=== PATIENT | male | born 1960 | race Caucasian/White ===

== ENCOUNTER 2020-09-14 14:57 | Outpatient (REF) | payer BC, SELFPAY ==
--- NOTE | 2020-09-14 15:14 | XR_ITS ---
EXAMINATION: XR CHEST CLINICAL INFORMATION: Cough COMPARISON: June 15, 2019 TECHNIQUE: 2 views of the chest were obtained. FINDINGS: No significant abnormality is noted involving the heart, lungs, mediastinum, bony thorax or soft tissues. Bilateral nipple shadows evident. XR/XR chest 2V IMPRESSION: No acute disease.
== END 2020-09-14 14:58 | disposition home or self-care (01) ==
LOC: HO.LAB 14:57
PROVIDERS: PCP Internal Medicine; Visit Provider Nurse Practitioner Family
DX: R05 Cough (principal)
CPT/HCPCS: 36415; 71046; U0003

== ENCOUNTER 2020-11-18 14:00 | Outpatient (RCR) | payer BC, SELFPAY | END 2021-01-05 15:02 | disposition home or self-care (01) | LOC: HO.PTCHIC 14:00 | PROVIDERS: PCP Internal Medicine; Visit Provider Internal Medicine | DX: M54.5 Low back pain (principal); M25.562 Pain in left knee | CPT/HCPCS: 97014; 97110; 97140; 97162 ==

== ENCOUNTER 2020-12-01 15:15 | Outpatient (REF) | payer BC, SELFPAY ==
--- NOTE | ~2020-12-01 | XR_ITS ---
EXAMINATION: XR knee RT 4V, XR knee LT 4V CLINICAL INFORMATION: Reason for Exam PAIN COMPARISON: None available at the time of this dictation. TECHNIQUE: frontal, lateral, tunnel and patella sunrise views FINDINGS: BONES: No fracture or dislocation is present. JOINTS: Mild narrowing of medial joint spaces suggest mild degenerative osteoarthritis. There are no joint effusions. SOFT TISSUE: Normal XR/XR knee RT 4V IMPRESSION: Mild degenerative osteoarthritis involving primarily medial compartments. No joint effusions. No significant osteophytes.
--- NOTE | ~2020-12-01 | MR_ITS ---
EXAMINATION: MR LUMBAR SPINE WITHOUT CONTRAST CLINICAL INFORMATION: Lower back pain. Left leg pain. COMPARISON: Lumbar spine radiographs dated 11/05/2018 TECHNIQUE: MRI of the lumbar spine was obtained using routine sequences without contrast. FINDINGS: VERTEBRAL BODIES AND PARASPINAL STRUCTURES: Straightening of the normal lumbar lordosis, which may be positional or related to muscular spasm. No acute fracture or subluxation. No loss of vertebral body height. Diffuse loss of intervertebral disc height with disc desiccation throughout the lumbar spine with sparing of L5-S1. Prominent Modic type I degenerative endplate changes at L2-L3. Overall, degenerative disc disease appears to have slightly progressed when compared to the prior radiographs. Probable vertebral body hemangioma within the posterior aspect of L1. Partially visualized simple left renal cyst. No recommended followup imaging. Otherwise, the visualized paraspinal soft tissues are unremarkable. CONUS MEDULLARIS AND CAUDA EQUINA: Normal, terminating at the level of L1. SPINAL LEVELS: T12-L1: Broad-based disc bulge with mild bilateral facet arthropathy. No significant central canal or neural foraminal stenosis. L1-L2: Broad-based disc bulge with bilateral facet arthropathy and thickening of the ligamentum flavum causing mild bilateral neural foraminal stenosis. L2-L3: Diffuse broad-based disc bulge with bilateral facet arthropathy and thickening of the ligamentum flavum causing mild central canal stenosis which encroaches upon the traversing left L3 nerve root within the lateral recess. Moderate left and mild right neural foraminal stenosis. L3-L4: Broad-based disc bulge with bilateral facet arthropathy and thickening of the ligamentum flavum causing mild central canal stenosis as well as mild bilateral neural foraminal stenosis. L4-L5: Broad-based disc bulge with a tiny posterior annular fissure. Bilateral facet arthropathy with thickening of the ligamentum flavum causing mild bilateral neural foraminal stenosis, right greater than left. L5-S1: Mild broad-based disc bulge with bilateral facet arthropathy causing mild bilateral neural foraminal stenosis. MR/MR lumbar spine wo con IMPRESSION: 1. Severe degenerative disc disease at L2-L3 with a broad-based disc bulge and bilateral facet arthropathy as well as thickening of the ligamentum flavum which causes mild central canal stenosis which encroaches upon the traversing left L3 nerve root. Moderate left and mild right neural foraminal stenosis. 2. Broad-based disc bulge at L3-L4 with bilateral facet arthropathy and thickening of the ligamentum flavum causing mild central canal as well as mild bilateral neural foraminal stenosis. 3. Broad-based disc bulge at L4-L5 with a tiny posterior annular fissure as well as bilateral facet arthropathy and thickening of the ligamentum flavum causing mild bilateral neural foraminal stenosis, right greater than left. 4. Broad-based disc bulge at L1-L2 with bilateral facet arthropathy and thickening of the ligamentum flavum causing mild bilateral neural foraminal stenosis. 5. Mild broad-based disc bulge at L5-S1 with bilateral facet arthropathy causing mild bilateral neural foraminal stenosis.
--- NOTE | ~2020-12-01 | XR_ITS ---
EXAMINATION: XR ORBITS PRE-MRI SCREENING CLINICAL INFORMATION: History foreign body type. Pre-MRI screening. COMPARISON: None TECHNIQUE: The orbits are imaged in 3 views. FINDINGS: There is no visible metallic orbital foreign body. The orbital rims and floors are unremarkable. The visualized sinuses and mastoids appear clear. There are degenerative changes upper cervical spine. XR/XR pre mri screening IMPRESSION: No metallic orbital foreign body demonstrated.
--- NOTE | ~2020-12-01 | XR_ITS ---
EXAMINATION: XR knee RT 4V, XR knee LT 4V CLINICAL INFORMATION: Reason for Exam PAIN COMPARISON: None available at the time of this dictation. TECHNIQUE: frontal, lateral, tunnel and patella sunrise views FINDINGS: BONES: No fracture or dislocation is present. JOINTS: Mild narrowing of medial joint spaces suggest mild degenerative osteoarthritis. There are no joint effusions. SOFT TISSUE: Normal XR/XR knee LT 4V IMPRESSION: Mild degenerative osteoarthritis involving primarily medial compartments. No joint effusions. No significant osteophytes.
== END 2020-12-01 15:16 | disposition home or self-care (01) ==
LOC: HO.MRI 15:15
PROVIDERS: Visit Provider Internal Medicine
DX: M25.562 Pain in left knee (principal); M25.561 Pain in right knee; M25.462 Effusion, left knee; M25.461 Effusion, right knee; M54.5 Low back pain
CPT/HCPCS: 72148; 73564

== ENCOUNTER → 2022-11-15 08:35 | Outpatient (REF) | payer BC, SELFPAY ==
--- NOTE | 2022-11-15 08:38 | CA_ITS ---
Transthoracic Echocardiogram Patient (Last, First, Middle): Fortino Salinas R Gender: Male Date of : 1960 Age: 62 Procedure Date: 11/15/2022 Procedure Type: Transthoracic Echocardiogram Location: OP Height: 172.72 cm Weight: 74.84 kg BSA: 1.88 m2 Heart Rate: bpm BP: 150 / 90 mmHg Used Car Make Ready Mechanic: TO Referring MD: Markell Birmingham MD Food Service Sales Representatives: Stevo Garcia MD Symptoms: R01.1 CARDIAC MURMUR Study Quality: Fair ECG Rhythm: Sinus Conclusions: - 1. Normal measured LV systolic function with LVEF of 60 65% with impaired relaxation filling pattern 2. Fibrocalcific aortic valve changes noted with normal cardiac valvular Doppler 3. No gross pericardial effusion Findings Left Ventricle Normal left ventricular size, thickness, and systolic function. The visually estimated ejection fraction is between 60-65%. Spectral Doppler is indicative of an impaired relaxation filling pattern. Peak GLS is -15.5%, which is reduced. Right Ventricle Normal right ventricular cavity size and systolic function. Atria The left atrium is normal in size. Interatrial shunt cannot be excluded. The right atrium is normal in size. Aortic Valve There is mild calcification of the aortic valve. There is mild thickening of the aortic valve. There is no aortic valve stenosis. There is no aortic valve regurgitation. Mitral Valve There is mild anterior and posterior mitral leaflet thickening. There is mild mitral annular calcification. There is trace mitral valve regurgitation. There is no mitral valve stenosis. Pulmonic Valve The pulmonic valve was not well visualized. Tricuspid Valve Likely normal tricuspid valve structure and function. Tricuspid regurgitation envelope is inadequate for calculation of right ventricular systolic pressure. Great Vessels All visible segments of the aorta are normal in size. The pulmonary artery was not well visualized. Venous The inferior vena cava was not well visualized. Pericardium/Pleural There is no evidence of pericardial effusion. Measurements 2D Linear Measurements IVSd: 1.03 0.6-0.9/0.6-1.0 cm LVIDd: 4.84 3.9-5.3/4.2-5.9 cm LVIDd Index: 2.57 2.4-3.2/2.2-3.1 cm/m2 LVIDs: 3.10 2.0-3.6 cm LVPWd: 0.88 0.7-1.1 cm LA Diam: 3.00 2.7-3.8/3.0-4.0 cm LAIDs Index: 1.60 1.5-2.3 cm/m2 LV Mass: 202.08 67-162/88-224 g LV Mass Index: 107.49 43-95/49-115 g/m2 LVOT Diam: 2.10 3.0+(-)1.3 cm 2D Systolic Function EF 4C: 62.50 >55% EF 2C: 58.30 >55% EF BiP: 60.40 >55% Aortic Valve AoV Pk Hussain: 1.33 AoV Mn Hussain: 0.96 AoV VTI: 0.23 AoV Pk Grad: 7.00 Aov Mn Grad: 4.00 RADHA Cont.VTI: 2.61 LVOT LVOT Pk Hussain: 1.06 LVOT Mn Hussain: 0.74 LVOT VTI: 0.18 LVOT Pk Grad: 4.00 LVOT Mn Grad: 2.00 LVOT Diam: 2.10 LVOT Area: 3.46 Right Ventricle TAPSE (mm): 26.10 TVS' Hussain: 13.90 Great Vessels Aorta Sinus of Valsalva: 3.57 2.0-3.[address] [place]: 2.42 1.7-3.4 cm Ao Asc: 3.00 2.1-3.4 cm Updated in Other Vendor System with Status of Final Stevo Garcia MD electronically signed on 11/15/2022 4:24:36 PM with status of Final
== END ==
LOC: HO.CARD 08:35
PROVIDERS: PCP Internal Medicine; Visit Provider Internal Medicine
DX: R01.1 Cardiac murmur, unspecified (principal)
CPT/HCPCS: 93306; 93356

== ENCOUNTER 2024-02-13 09:21 | Outpatient (REF) | payer BC, SELFPAY ==
[2024-02-13 12:01] LABS: PSA,Total (Free>4and<10) 5.83 ng/mL (0.00-4.00)
[2024-02-14 12:03] LABS: Free Prostate Spec Ag 0.6 ng/mL; Percent Free Prostate Spec Ag 10 % (calc) (>25); Prostate Specific Ag Total 5.8 ng/mL (< OR = 4.0)
== END 2024-02-13 09:22 | disposition home or self-care (01) ==
LOC: HO.LAB 09:21
PROVIDERS: PCP Internal Medicine; Visit Provider Urology
DX: Z12.5 Encounter for screening for malignant neoplasm of prostate (principal); R97.20 Elevated prostate specific antigen [PSA]; N40.0 Benign prostatic hyperplasia without lower urinary tract symptoms
CPT/HCPCS: 36415; 51798; 81003; 84153; 84154

== ENCOUNTER 2024-02-13 09:21 | Outpatient (AMB) | payer BC, SELFPAY ==
--- NOTE | 2024-02-13 09:37 | A.OFFVIS_ITS ---
Intake Visit Reasons: elevated PSA Intake Note: NEW Patient presents today to established treatment for Elevated PSA: Meds- None Allergies to Antibiotic- Penicillin & Sulfa Blood Thinner- None Post Void Residual: 96 mL Garden Worker Required: No Accompanied by: Self / Same As Patient Allergies Penicillins [PENICILLINS] Allergy (Severe, Verified 02/13/24 09:57) RASH penicillin V Allergy (Unknown, Verified 02/13/24 09:57) Unknown Sulfa (Sulfonamide Antibiotics) Allergy (Unknown, Verified 02/13/24 09:57) Unknown HPI Comments Details: Fortino is a 64-year-old male who is here for evaluation due to elevated PSA. He feels that he is urinating and emptying his bladder fine. AUA symptom score 14. He states that his father had a prostate issue but he has not sure what the problem was. I have discussed PSA is a blood test, prostate specific antigen and is an enzyme secreted by the prostate gland. Elevated PSA may be due to multiple conditions including prostate inflammatory condition, enlarged prostate or prostate cancer. I have discussed repeat PSA and prostate biopsy. Prostate Exam: Mild to moderately enlarged, irregular, firm right side. Elevated PSA 12/05/23---5.10 Urinalysis leukocytes negative blood negative. Bladder scan PVR 96 mL [facility] Medical History (Updated 02/13/24 @ 10:38 by Edith Delarosa MD) Elevated PSA Lumbar disc disease DJD (degenerative joint disease) HTN (hypertension) Surgical History No pertinent past surgical history Family History Father No problems noted. Mother No problems noted. Social History Alcohol intake: current Alcohol intake frequency: 3 or more drinks per day Alcohol type: beer Patient Tobacco Use Status: Never used Tobacco Review of Systems Const All systems reviewed & are unremarkable except as noted in HPI and below Reports no additional complaints Eyes Reports no additional complaints ENT Reports no additional complaints Card Reports no additional complaints Resp Reports no additional complaints GI Reports no additional complaints Reports as per HPI Musc Reports no additional complaints Skin/Breast Reports system reviewed and no additional complaints, except as documented Neuro Reports no additional complaints Psych Reports no additional complaints Endo Reports no additional complaints Han/Lymph Reports no additional complaints Aller/Immun Reports no additional complaints Physical Exam Const General: healthy appearing, no acute distress and well developed Orientation/consciousness: patient oriented x3 HEENT Head: Yes normocephalic and Yes atraumatic Eyes Conjunctivae: conjunctivae normal Neck Neck: Yes normal visual inspection Chest Chest palpation & inspection: normal inspection of the chest Resp Effort & Inspection: normal respiratory effort Cardio Rate: regular rate GI Inspection: Yes normal to inspection Palpation (GI): Soft to palpation Other: Prostate Exam: Mild to moderately enlarged, irregular, firm right side Skin General skin exam: no rashes or lesions noted Neuro General: patient oriented x3 Extrem General: No pedal edema Psych Appearance: grossly normal Affect: normal affect Office Procedures Post Void Residual Post Residual Void Post Void Residual (PVR): 96 [id number] Void Residual by ultrasound Results AMB Urinalysis, Automated UA Leukoctes 0 Bill/uL Last Edit by THOMAS Pena on 02/13/24 09:59 UA Nitrite Negative Last Edit by THOMAS Pena on 02/13/24 09:59 UA Urobilinogen 0.2 mg/dL Last Edit by THOMAS Pena on 02/13/24 09:5 9 UA Protein 0 mg/dL Last Edit by THOMAS Pena on 02/13/24 09:59 UA pH 6.0 Last Edit by THOMAS Pena on 02/13/24 09:59 UA Blood 0 Perez/uL Last Edit by THOMAS Pena on 02/13/24 09:59 UA Specific [place] 1.005 Last Edit by THOMAS Pena on 02/13/24 09: 59 UA Ketone Negative Last Edit by THOMAS Pena on 02/13/24 09:59 UA Bilirubin 0 mg/dL Last Edit by THOMAS Pena on 02/13/24 09:59 UA Glucose 0 mg/dL Last Edit by THOMAS Pena on 02/13/24 09:59 Quality Reporting (2019) Benign Prostatic Hyperplasia ([facility] 771) AUA symptom score: 14 Quality of life due to urinary symptoms: If you were to spend the rest of your life with your urinary condition the way it is now, how would you feel about that?: Mostly Satisfied Results Reviewed Results Reviewed: Laboratory Last Values Urine pH (Auto) 6.0 02/13/24 09:39 Specific [place] (Auto) 1.005 02/13/24 09:39 Urine Protein (Auto) 0 mg/dL 02/13/24 09:39 Glucose (UA)(Auto) 0 mg/dL 02/13/24 09:39 Urine Ketones (Auto) Negative 02/13/24 09:39 Urine Blood (Auto) 0 Perez/uL 02/13/24 09:39 Urine Nitrite (Auto) Negative 02/13/24 09:39 Urine Bilirubin (Auto) 0 mg/dL 02/13/24 09:39 Urine Urobilinogen (Auto) 0.2 mg/dL 02/13/24 09:39 Leukocyte Esterase (Auto) 0 Bill/uL 02/13/24 09:39 Assessment & Plan Assessment & Plan (1) Elevated PSA: Code(s): R97.20 - Elevated prostate specific antigen [PSA] Category: Medical (2) BPH (benign prostatic hyperplasia): Code(s): N40.0 - Benign prostatic hyperplasia without lower urinary tract symptoms Category: Medical Plan repeat PSA. discussed prostate biopsy Will discuss PSA results on FU Orders: Orders AMB Post Void Residual by ultrasound Today N39.8 - Other specified disorders of urinary system PSA,Total (Free>4and<10) Today R97.20 - Elevated prostate specific antigen [PSA] AMB Urinalysis Automated Today Z13.9 - Encounter for screening, unspecified Patient Instructions: The patient had an opportunity to ask questions regarding treatment plan. The patient expressed understanding and agreement with the above treatment plan. The patient is aware they should contact our office by phone for worsening of their current condition or the appearance of new symptoms. Compliance is encouraged with any medications and followup testing that is ordered. It is a privilege to be allowed the opportunity to participate in the urologic care of your patient. If you have any questions or concerns regarding treatment for the above conditions please do not hesitate to contact me. The office telephone contact is [phone]. This note is constructed in part using voice recognition software. While every effort has been made to ensure accuracy freight representative errors may have been included. Yours sincerely, Edith Delarosa MD Coding Level of Care Code New Pt Level 4 (86481) Diagnoses Elevated PSA R97.20 BPH (benign prostatic hyperplasia) N40.0 CPT Codes Post Residual Void - PVR CPT Code: 12042-Sexb Void Residual by ultrasound ([id number]) AUA Symptom Score AUA Incomplete emptying - It does not feel like I empty my bladder all the way.: 2 - Less than half the time Frequency - I have to go again less than two hours after I finish urinating.: 3 - About half the time Intermittency - I stop and start again several times when I urinate.: 3 - About half the time Urgency - It is hard to wait when I have to urinate.: 1 - Less than 1 time in 5 Weak stream - I have a weak urinary stream.: 2 - Less than half the time Straining - I have to push or strain to begin urination.: 1 - Less than 1 time in 5 Nocturia - I get up to urinate after I go to bed until the time I get up in the morning.: 2 times AUA Symptom Score: 14 Quality of life due to urinary symptoms: If you were to spend the rest of your life with your urinary condition the way it is now, how would you feel about that?: Mostly Satisfied Source: Antonio LYONS, Patrick MORTON Jr, O'Diego MP, et al, and the Measurement Committee of the [place] [employer]. The [place] [employer] symptom index for benign prostatic hyperplasia. J Urol. 1992; 148: 6111-4822. Copyright 1992 [place]
== END 2024-02-13 10:21 | disposition home or self-care (01) ==
PROVIDERS: PCP Internal Medicine; Visit Provider Urology
DX: R97.20 Elevated prostate specific antigen [PSA] (principal); N40.0 Benign prostatic hyperplasia without lower urinary tract symptoms; Z13.9 Encounter for screening, unspecified
CPT/HCPCS: 99204

== ENCOUNTER 2024-03-26 15:36 | Outpatient (AMB) | payer BC, SELFPAY ==
--- NOTE | 2024-03-26 15:36 | MHC.OFFVIS ---
Intake Visit Reasons: 6w/PSA(set) Intake Note: Patient is Present for Telephone Follow Up PSA Urology Med:None Antibiotic Allergy: Penicillins, Sulfa antibiotics Blood Thinner:None Engineering Clerk Required: No Allergies Penicillins [PENICILLINS] Allergy (Severe, Verified 03/26/24 15:52) RASH penicillin V Allergy (Unknown, Verified 03/26/24 15:52) Unknown Sulfa (Sulfonamide Antibiotics) Allergy (Unknown, Verified 03/26/24 15:52) Unknown HPI Comments Details: 03/26/24--Telehealth follow-up - elevated PSA, discussed repeat PSA 02/13/24--5.84 ng/mL. Will schedule prostate biopsy. Transrectal Ultrasound guided biopsy of the prostate. Discussed risks to include but not limited to pain, blood in stool, urine and semen, septicemia, need to repeat biopsy. Review of chart: 02/13/24--Fortino is a 64-year-old male who is here for evaluation due to elevated PSA. He feels that he is urinating and emptying his bladder fine. AUA symptom score 14. He states that his father had a prostate issue but he has not sure what the problem was. I have discussed PSA is a blood test, prostate specific antigen and is an enzyme secreted by the prostate gland. Elevated PSA may be due to multiple conditions including prostate inflammatory condition, enlarged prostate or prostate cancer. I have discussed repeat PSA and prostate biopsy. Prostate Exam: Mild to moderately enlarged, irregular, firm right side. Urinalysis leukocytes negative blood negative. Bladder scan PVR 96 mL. Elevated PSA 12/05/23---5.10 PFSH Medical History (Updated 02/13/24 @ 10:38 by Edith Delarosa MD) Elevated PSA Lumbar disc disease DJD (degenerative joint disease) HTN (hypertension) Surgical History No pertinent past surgical history Family History Father No problems noted. Mother No problems noted. Social History Alcohol intake: current Alcohol intake frequency: 3 or more drinks per day Alcohol type: beer Patient Tobacco Use Status: Never used Tobacco Review of Systems Const All systems reviewed & are unremarkable except as noted in HPI and below Reports no additional complaints Eyes Reports no additional complaints ENT Reports no additional complaints Card Reports no additional complaints Resp Reports no additional complaints GI Reports no additional complaints Reports as per HPI Musc Reports no additional complaints Skin/Breast Reports system reviewed and no additional complaints, except as documented Neuro Reports no additional complaints Psych Reports no additional complaints Endo Reports no additional complaints Han/Lymph Reports no additional complaints Aller/Immun Reports no additional complaints Telehealth Telehealth Telehealth Platform: [facility] Location of provider rendering services: practice address Location of patient: address on file Patient Identification confirmed using: Name, : Yes Telehealth method: video Patient verbally consented to treatment: Yes Patient verbally consented to billing insurance company: Yes Patient informed of any privacy concerns related to visit: Yes Assessment & Plan Assessment & Plan (1) Elevated PSA: Code(s): R97.20 - Elevated prostate specific antigen [PSA] Category: Medical (2) BPH (benign prostatic hyperplasia): Code(s): N40.0 - Benign prostatic hyperplasia without lower urinary tract symptoms Category: Medical Plan Schedule prostate biopsy. Medications: New ciprofloxacin HCl start one day prior to prostate biopsy 500 mg PO BID 6 tabs 0RF 3 days Patient Instructions: The patient had an opportunity to ask questions regarding treatment plan. The patient expressed understanding and agreement with the above treatment plan. The patient is aware they should contact our office by phone for worsening of their current condition or the appearance of new symptoms. Compliance is encouraged with any medications and followup testing that is ordered. It is a privilege to be allowed the opportunity to participate in the urologic care of your patient. If you have any questions or concerns regarding treatment for the above conditions please do not hesitate to contact me. The office telephone contact is [phone]. This note is constructed in part using voice recognition software. While every effort has been made to ensure accuracy deportation officer errors may have been included. Yours sincerely, Edith Delarosa MD Coding Level of Care Code Est Pt Level 4 (61633) Diagnoses Elevated PSA R97.20 BPH (benign prostatic hyperplasia) N40.0
== END 2024-03-26 16:30 | disposition home or self-care (01) ==
LOC: HO.HUSH 15:36
PROVIDERS: PCP Internal Medicine; Visit Provider Urology
DX: R97.20 Elevated prostate specific antigen [PSA] (principal); N40.0 Benign prostatic hyperplasia without lower urinary tract symptoms
CPT/HCPCS: 99214

== ENCOUNTER → 2024-03-26 15:36 | Outpatient (BNVA) | payer BC, SELFPAY | PROVIDERS: PCP Internal Medicine; Visit Provider Urology ==

== ENCOUNTER → 2024-06-04 08:13 | Outpatient (REF) | payer BC, SELFPAY ==
--- NOTE | 2024-06-04 08:17 | CA_ITS ---
Transthoracic Echocardiogram Patient (Last, First, Middle): Fortino Salinas R Gender: Male Date of : 1960 Age: 64 Procedure Date: 06/04/2024 Procedure Type: Transthoracic Echocardiogram Location: OP Height: 172.72 cm Weight: 72.58 kg BSA: 1.86 m2 Heart Rate: 75 bpm BP: 132 / 70 mmHg Encyclopedia Research Worker: NOÉ Referring MD: Markell Birmingham MD Symptoms: F/O AORTIC STENOSIS Study Quality: Adequate ECG Rhythm: Sinus Conclusions: - 1. Normal LV systolic function with LVEF of 65-70% 2. Fibrocalcific aortic valve changes noted with normal cardiac valvular Dopplers 3. No gross pericardial effusion Findings Left Ventricle Normal left ventricular size, thickness, and systolic function. The visually estimated ejection fraction is between 65-70%. Spectral Doppler is indicative of an impaired relaxation filling pattern. Peak GLS is -18.7%, within normal limits. Right Ventricle Normal right ventricular cavity size and systolic function. Atria Both atria are normal in size. There is no evidence of interatrial shunt. Aortic Valve There is mild calcification of the aortic valve. There is mild thickening of the aortic valve. There is no aortic valve stenosis. There is no aortic valve regurgitation. Mitral Valve Normal mitral valve structure and function. There is trace mitral valve regurgitation. There is no mitral valve stenosis. Pulmonic Valve The pulmonic valve is likely normal. There is trace pulmonic valve regurgitation. Tricuspid Valve Normal tricuspid valve structure. Tricuspid regurgitation envelope is inadequate for calculation of right ventricular systolic pressure. Normal right atrial pressure. Great Vessels The pulmonary artery was not well visualized. There is no dilatation of the ascending aorta measuring 3.10 cm. Venous The inferior vena cava is normal in size and collapses greater than 50% with inspiration. Pericardium/Pleural There is no evidence of pericardial effusion. Measurements 2D Linear Measurements IVSd: 0.89 0.6-0.9/0.6-1.0 cm LVIDd: 4.40 3.9-5.3/4.2-5.9 cm LVIDd Index: 2.37 2.4-3.2/2.2-3.1 cm/m2 LVIDs: 1.96 2.0-3.6 cm LVPWd: 0.85 0.7-1.1 cm LA Diam: 3.40 2.7-3.8/3.0-4.0 cm LAIDs Index: 1.83 1.5-2.3 cm/m2 LV Mass: 152.26 67-162/88-224 g LV Mass Index: 81.86 43-95/49-115 g/m2 LVOT Diam: 2.10 3.0+(-)1.3 cm 2D Systolic Function EF 4C: 66.40 >55% EF 2C: 66.40 >55% EF BiP: 66.50 >55% Mitral Valve MV Pk E: 0.79 MV PK A: 0.77 MV Decel Time: 192.00 E/A: 1.00 E'Lateral: 9.03 E'Medial: 7.83 E/E' Med: 10.10 E/E' Lat: 8.70 PHT: 56.00 MVA PHT: 3.93 Decel Sheridan: 4.11 Aortic Valve AoV Pk Hussain: 1.21 AoV Mn Hussain: 0.91 AoV VTI: 0.26 AoV Pk Grad: 6.00 Aov Mn Grad: 4.00 RADHA Cont.VTI: 2.38 LVOT LVOT Pk Hussain: 0.83 LVOT Mn Hussain: 0.60 LVOT VTI: 0.18 LVOT Pk Grad: 3.00 LVOT Mn Grad: 2.00 LVOT Diam: 2.10 LVOT Area: 3.46 Diastolic Function MV Pk E: 0.79 MV Pk A: 0.77 E/A: 1.00 E'Medial: 7.83 E/E' Med: 10.10 E' Laterial: 9.03 E/E' Lat: 8.70 Right Ventricle TAPSE (mm): 25.60 TVS' Hussain: 13.70 Tricuspid Valve RA Press: 8.00 Great Vessels Aorta Sinus of Valsalva: 3.10 2.0-3.5 cm Ao Asc: 3.10 2.1-3.4 cm Pulmonary Valve PV Pk Hussain: 1.72 PV Min Hussain: 1.16 Peak PV Grad: 12.00 PV Mn Grad: 6.00 Shunting QP:QS: 1.20 Updated in Other Vendor System with Status of Final Stevo Garcia MD electronically signed on 06/04/2024 4:24:33 PM with status of Final
== END ==
LOC: HO.CARD 08:13
PROVIDERS: PCP Internal Medicine; Visit Provider Internal Medicine
DX: I70.0 Atherosclerosis of aorta (principal)
CPT/HCPCS: 93306; 93356

== ENCOUNTER → 2024-06-04 08:17 | Outpatient (BNV) | payer BC, SELFPAY | PROVIDERS: PCP Internal Medicine; Visit Provider Internal Medicine Cardiovascular Disease | DX: I35.8 Other nonrheumatic aortic valve disorders (principal) | CPT/HCPCS: 93306; 93356 ==

== ENCOUNTER 2024-06-05 08:01 | Outpatient (REF) | payer BC, SELFPAY ==
[2024-06-05] MEDS: Lidocaine HCl 1 % MPF 5 ML VIAL 10 ML SUBCUT (08:42)
--- NOTE | 2024-06-05 08:58 | W.PM.OPN ---
Operative Note Operative Note Date of Service: 06/05/24 Narrative: PreOperative Diagnosis:? ? Elevated PSA Post Operative Diagnosis:??Elevated PSA Procedure:?1. Transrectal ultrasound guided biopsy of the prostate 12 core 2. Transrectal ultrasound measurement of prostate 3. Transrectal ultrasound guided pudendal nerve block Surgeon:?Dr Edith Delarosa Anesthesia:? Local Indications for procedure: Elevated PSA Procedure: Preoperative antibiotics confirmed. After informed consent was verified the patient was placed on the procedure table in left lateral position. Patient identity confirmed. Safety pause time-out performed. Digital rectal exam performed to dilate rectal sphincter, iodine mixed with lubricant jelly 30 cc placed per rectum. Ultrasound probe was placed per rectum. The prostate was visualized. The prostate was measured width 4.97 cm, height 3.18 cm, length 3.57 cm with a volume of 29.5 mL. An ultrasound guided pudendal nerve block was performed using 10 cc of 1% lidocaine. A 12 core biopsy was performed from the left base, left mid, left apex and right base, mid, apex 2 biopsies from each section. The ultrasound probe was removed and digital palpation of the prostate for 1-2 minutes for hemostasis was performed. The patient tolerated the procedure well. Complications: None
== END 2024-06-05 08:02 | disposition home or self-care (01) ==
LOC: HO.US 08:01
PROVIDERS: PCP Internal Medicine; Visit Provider Urology
DX: R97.20 Elevated prostate specific antigen [PSA] (principal)
CPT/HCPCS: 55700; 76942; 88305; 88344; J2003

== ENCOUNTER → 2024-06-05 08:01 | Outpatient (BNV) | payer BC, SELFPAY | PROVIDERS: PCP Internal Medicine; Visit Provider Urology | DX: R97.20 Elevated prostate specific antigen [PSA] (principal) | CPT/HCPCS: 55700; 76872 ==

== ENCOUNTER 2024-06-15 10:18 | Outpatient (AMB) | payer BC, SELFPAY ==
--- NOTE | 2024-06-15 10:22 | A.OFFVIS_ITS ---
Intake Visit Reasons: Prostate biopsy results(pending) Intake Note: Patient is present for PROSTATE BIOPSY RESULTS Urology Medication:CIPROFLOICAN Antibiotic Allergy:PENICILLINS,SULFA, Blood Thinner:NONE Air Sampling And Monitoring Required: No Allergies Penicillins [PENICILLINS] Allergy (Severe, Verified 06/15/24 10:24) RASH penicillin V Allergy (Unknown, Verified 06/15/24 10:24) Unknown Sulfa (Sulfonamide Antibiotics) Allergy (Unknown, Verified 06/15/24 10:24) Unknown HPI Comments Details: 06/15/24--follow-up prostate biopsy PSA 02/13/2024--5.84. Fortino is status post prostate biopsy on 06/05/24. I have reviewed results, prostate adenocarcinoma and intraductal carcinoma, Marl[place] 3+4=7. I have discussed treatment options to include Radical prostatectomy: In this operation, the surgeon removes the entire prostate gland plus some of the tissue around it, including the seminal vesicles. Sometimes nearby lymph nodes are removed as well. The major possible side effects of radical prostatectomy are: Urinary incontinence and Erectile dysfunction. Radiation Therapy, which uses high-energy rays or particles to kill cancer cells. External beam radiation vs Brachytherapy. Active Surveil alejo- is reasonable only in localized early diagnosed prostate cancer. Will refer to radiation oncology and Dr. Juárez for further discussion on treatment options. Review of chart: 03/26/24--Telehealth follow-up - elevated PSA, discussed repeat PSA 02/13/24--5.84 ng/mL. Will schedule prostate biopsy. Transrectal Ultrasound guided biopsy of the prostate. Discussed risks to include but not limited to pain, blood in stool, urine and semen, septicemia, need to repeat biopsy. 02/13/24--Fortino is a 64-year-old male who is here for evaluation due to elevated PSA. He feels that he is urinating and emptying his bladder fine. AUA symptom score 14. He states that his father had a prostate issue but he has not sure what the problem was. I have discussed PSA is a blood test, prostate specific antigen and is an enzyme secreted by the prostate gland. Elevated PSA may be due to multiple conditions including prostate inflammatory condition, enlarged prostate or prostate cancer. I have discussed repeat PSA and prostate biopsy. Prostate Exam: Mild to moderately enlarged, irregular, firm right side. Urinalysis leukocytes negative blood negative. Bladder scan PVR 96 mL. Elevated PSA 12/05/23---5.10 [facility] Medical History (Updated 06/15/24 @ 10:58 by Edith Delarosa MD) Elevated PSA Lumbar disc disease DJD (degenerative joint disease) HTN (hypertension) Surgical History No pertinent past surgical history Family History Father No problems noted. Mother No problems noted. Social History Alcohol intake: current Alcohol intake frequency: 3 or more drinks per day Alcohol type: beer Patient Tobacco Use Status: Never used Tobacco Review of Systems Const All systems reviewed & are unremarkable except as noted in HPI and below Reports no additional complaints Eyes Reports no additional complaints ENT Reports no additional complaints Card Reports no additional complaints Resp Reports no additional complaints GI Reports no additional complaints Reports as per HPI Musc Reports no additional complaints Skin/Breast Reports system reviewed and no additional complaints, except as documented Neuro Reports no additional complaints Psych Reports no additional complaints Endo Reports no additional complaints Han/Lymph Reports no additional complaints Aller/Immun Reports no additional complaints Results AMB Urinalysis, Automated UA Leukoctes 0 Bill/uL Last Edit by RUTHY Bright on 06/15/24 10:33 UA Nitrite Negative Last Edit by RUTHY Bright on 06/15/24 10:33 UA Urobilinogen 0.2 mg/dL Last Edit by RUTHY Bright on 06/15/24 10:3 3 UA Protein 0 mg/dL Last Edit by RUTHY Bright on 06/15/24 10:33 UA pH 5.5 Last Edit by RUTHY Bright on 06/15/24 10:33 UA Blood 200 Perez/uL Last Edit by RUTHY Bright on 06/15/24 10:33 UA Specific [place] 1.015 Last Edit by RUTHY Bright on 06/15/24 10: 33 UA Ketone Negative Last Edit by RUTHY Bright on 06/15/24 10:33 UA Bilirubin 0 mg/dL Last Edit by RUTHY Bright on 06/15/24 10:33 UA Glucose 0 mg/dL Last Edit by RUTHY Bright on 06/15/24 10:33 Results Reviewed Results Reviewed: Laboratory Last Values Urine pH (Auto) 5.5 06/15/24 10:32 Specific [place] (Auto) 1.015 06/15/24 10:32 Urine Protein (Auto) 0 mg/dL 06/15/24 10:32 Glucose (UA)(Auto) 0 mg/dL 06/15/24 10:32 Urine Ketones (Auto) Negative 06/15/24 10:32 Urine Blood (Auto) 200 Perez/uL 06/15/24 10:32 Urine Nitrite (Auto) Negative 06/15/24 10:32 Urine Bilirubin (Auto) 0 mg/dL 06/15/24 10:32 Urine Urobilinogen (Auto) 0.2 mg/dL 06/15/24 10:32 Leukocyte Esterase (Auto) 0 Bill/uL 06/15/24 10:32 Collected: 06/05/24 Location: [facility] Received: 06/05/24 Diagnosis Prostate needle biopsies: A: Left base lateral: Prostatic adenocarcinoma, Marl[place] score 3+3=6 (grade group 1) involving 10% of the tissue. B: Left base medial: Prostatic adenocarcinoma, Marl[place] score 3+3=6 (grade group 1) involving 15% of the tissue. C: Left mid lateral: Benign prostatic tissue; negative for malignancy. D: Left mid medial: Benign prostatic tissue; negative for malignancy. E: Left apex lateral: Benign prostatic tissue; negative for malignancy. F: Left apex medial: Benign prostatic tissue; negative for malignancy. G: Right base lateral: Prostatic adenocarcinoma, [place] score 3+4=7 (grade group 2) and intraductal carcinoma; together involving 60% of the tissue. H: Right base medial: Prostatic adenocarcinoma, Marl[place] score 3+4=7 (grade group 2) and intraductal carcinoma; together involving 70% of the tissue. I: Right mid lateral: Prostatic adenocarcinoma, Marl[place] score 3+3=6 (grade group 1) and intraductal carcinoma; together involving 70% of the tissue. J: Right mid medial: Prostatic adenocarcinoma, Marl[place] score 3+4=7 (grade group 2) and intraductal carcinoma; together involving 80% of the tissue. K: Right apex lateral: Intraductal carcinoma involving 60% of the tissue. L: Right apex medial: Intraductal carcinoma involving 70% of the tissue. Data synopsis - Prostate needle biopsy Histologic type: Adenocarcinoma, acinar type and intraductal carcinoma Histologic grade: Amirah score: 3+4=7 (right base lateral, right base medial, right mid medial) 3+3=6 (left base medial, left base lateral, right mid lateral) % of pattern 4: 10% of the invasive tumor Patient: Fortino Salinas [facility]: 64[id number]#: [id number] Page 1 of 4 Surgical Pathology [id number] % of pattern 5: 0* Grade group: 2 and 1; plus intraductal carcinoma Tumor quantitation: Number cores positive: 8 Total number of cores: 12 % of tissue involved: 40% of all tissue examined (majority intraductal carcinoma); 15% invasive component Periprostatic fat inv.: Not identified Seminal vesicle inv.: Not identified Perineural inv.: Present LVI: Not identified Clinical History Elevated PSA . Assessment & Plan Assessment & Plan (1) Adenocarcinoma of prostate: Code(s): C61 - Malignant neoplasm of prostate Category: Medical Plan Referred to and Radiation Oncology and Urologist Dr. Juárez Orders: Orders AMB Urinalysis Automated 06/15/24 Z13.9 - Encounter for screening, unspecified Referrals Radiation Oncology Referral C61 - Malignant neoplasm of prostate Urology Referral C61 - Malignant neoplasm of prostate Patient Instructions: The patient had an opportunity to ask questions regarding treatment plan. The patient expressed understanding and agreement with the above treatment plan. The patient is aware they should contact our office by phone for worsening of their current condition or the appearance of new symptoms. Compliance is encouraged with any medications and followup testing that is ordered. It is a privilege to be allowed the opportunity to participate in the urologic care of your patient. If you have any questions or concerns regarding treatment for the above conditions please do not hesitate to contact me. The office telephone contact is [phone]. This note is constructed in part using voice recognition software. While every effort has been made to ensure accuracy engine tester errors may have been included. Yours sincerely, Edith Delarosa MD Coding Level of Care Code Est Pt Level 4 (05574) Diagnoses Adenocarcinoma of prostate C61
== END 2024-06-15 11:05 | disposition home or self-care (01) ==
PROVIDERS: PCP Internal Medicine; Visit Provider Urology
DX: C61 Malignant neoplasm of prostate (principal)
CPT/HCPCS: 99214

== ENCOUNTER → 2024-06-15 10:18 | Outpatient (BNVA) | payer BC, SELFPAY | PROVIDERS: PCP Internal Medicine; Visit Provider Urology | DX: C61 Malignant neoplasm of prostate (principal) | CPT/HCPCS: 81003 ==

== ENCOUNTER 2025-01-21 13:47 | Outpatient (AMB) | payer MEDICARE, BC, SELFPAY ==
--- NOTE | 2025-01-21 13:48 | MHC.OFFVIS ---
Intake Visit Reasons: 4m followup Intake Note: Fortino is a 65 year old male who presents today for a 4 months follow up telephone visit . He was referred Dr Patrick Serrato for consideration of radiotherapy. Patient completed the radiation therapy. Urology Medication:CIPROFLOICAN Antibiotic Allergy:PENICILLINS,SULFA, Blood Thinner:NONE Take Away Man Required No Allergies Penicillins [PENICILLINS] Allergy (Severe, Verified 06/15/24 10:24) RASH penicillin V Allergy (Unknown, Verified 06/15/24 10:24) Unknown Sulfa (Sulfonamide Antibiotics) Allergy (Unknown, Verified 06/15/24 10:24) Unknown Medication List - Last Reconciled 01/21/25 by Edith Delarosa MD ciprofloxacin HCl 500 mg PO BID 3 days cyclobenzaprine 10 mg PO TID escitalopram oxalate 20 mg PO DAILY hydrocodone-acetaminophen 10-325 mg 1 tab PO TID PRN ibuprofen 800 mg PO TID lisinopril 20 mg PO DAILY nifedipine ER 30 mg PO DAILY tamsulosin (Flomax) 0.4 mg PO DAILY HPI Comments Details: 01/21/25-- Fortino is status post radiation therapy for localized prostate cancer. He received about 32 treatments, and completed the course of therapy this week. He states he has had some urinary symptoms hesitancy and dysuria. He states that the radiation oncologist prescribed Flomax and he has increased his water intake And cut back on coffee which has helped. he has a follow-up in 3 months with radiation oncology I will send an order for PSA to be done prior and I will follow-up with him in 6 months with a repeat PSA at that time as well. 06/15/24--follow-up prostate biopsy PSA 02/13/2024--5.84. Fortino is status post prostate biopsy on 06/05/24. I have reviewed results, prostate adenocarcinoma and intraductal carcinoma, Rippey 3+4=7. I have discussed treatment options to include Radical prostatectomy: In this operation, the surgeon removes the entire prostate gland plus some of the tissue around it, including the seminal vesicles. Sometimes nearby lymph nodes are removed as well. The major possible side effects of radical prostatectomy are: Urinary incontinence and Erectile dysfunction. Radiation Therapy, which uses high-energy rays or particles to kill cancer cells. External beam radiation vs Brachytherapy. Active Surveillance- is reasonable only in localized early diagnosed prostate cancer. Will refer to radiation oncology and Dr. Juárez for further discussion on treatment options. 03/26/24--Telehealth follow-up - elevated PSA, discussed repeat PSA 02/13/24--5.84 ng/mL. Will schedule prostate biopsy. Transrectal Ultrasound guided biopsy of the prostate. Discussed risks to include but not limited to pain, blood in stool, urine and semen, septicemia, need to repeat biopsy. 02/13/24--Fortino is a 64-year-old male who is here for evaluation due to elevated PSA. He feels that he is urinating and emptying his bladder fine. AUA symptom score 14. He states that his father had a prostate issue but he has not sure what the problem was. I have discussed PSA is a blood test, prostate specific antigen and is an enzyme secreted by the prostate gland. Elevated PSA may be due to multiple conditions including prostate inflammatory condition, enlarged prostate or prostate cancer. I have discussed repeat PSA and prostate biopsy. Prostate Exam: Mild to moderately enlarged, irregular, firm right side. Urinalysis leukocytes negative blood negative. Bladder scan PVR 96 mL. Elevated PSA 12/05/23---5.10 [facility] Medical History Elevated PSA Lumbar disc disease DJD (degenerative joint disease) HTN (hypertension) Surgical History No pertinent past surgical history Family History Father No problems noted. Mother No problems noted. Social History Alcohol intake: current Alcohol intake frequency: 3 or more drinks per day Alcohol type: beer Patient Tobacco Use Status: Never used Tobacco Telehealth Telehealth Telehealth Platform: Telephone Location of provider rendering services: practice address Location of patient: address on file Patient Identification confirmed using: Name, : Yes Telehealth method: voice only Patient verbally consented to treatment: Yes Patient verbally consented to billing insurance company: Yes Patient informed of any privacy concerns related to visit: Yes Minutes spent on Phone/Video with Pt.: 14 Results Reviewed Results Reviewed: Collected: 06/05/24 Location: [facility] Received: 06/05/24 Diagnosis Prostate needle biopsies: A: Left base lateral: Prostatic adenocarcinoma, Amirah score 3+3=6 (grade group 1) involving 10% of the tissue. B: Left base medial: Prostatic adenocarcinoma, Amirah score 3+3=6 (grade group 1) involving 15% of the tissue. C: Left mid lateral: Benign prostatic tissue; negative for malignancy. D: Left mid medial: Benign prostatic tissue; negative for malignancy. E: Left apex lateral: Benign prostatic tissue; negative for malignancy. F: Left apex medial: Benign prostatic tissue; negative for malignancy. G: Right base lateral: Prostatic adenocarcinoma, Amirah score 3+4=7 (grade group 2) and intraductal carcinoma; together involving 60% of the tissue. H: Right base medial: Prostatic adenocarcinoma, Amirah score 3+4=7 (grade group 2) and intraductal carcinoma; together involving 70% of the tissue. I: Right mid lateral: Prostatic adenocarcinoma, Amirah score 3+3=6 (grade group 1) and intraductal carcinoma; together involving 70% of the tissue. J: Right mid medial: Prostatic adenocarcinoma, Amirah score 3+4=7 (grade group 2) and intraductal carcinoma; together involving 80% of the tissue. K: Right apex lateral: Intraductal carcinoma involving 60% of the tissue. L: Right apex medial: Intraductal carcinoma involving 70% of the tissue. Data synopsis - Prostate needle biopsy Histologic type: Adenocarcinoma, acinar type and intraductal carcinoma Histologic grade: Rippey score: 3+4=7 (right base lateral, right base medial, right mid medial) 3+3=6 (left base medial, left base lateral, right mid lateral) % of pattern 4: 10% of the invasive tumor Patient: Fortino Salinas Age/Sex: 64/M MR#: [id number] Page 1 of 4 Surgical Pathology [id number] % of pattern 5: 0* Grade group: 2 and 1; plus intraductal carcinoma Tumor quantitation: Number cores positive: 8 Total number of cores: 12 % of tissue involved: 40% of all tissue examined (majority intraductal carcinoma); 15% invasive component Periprostatic fat inv.: Not identified Seminal vesicle inv.: Not identified Perineural inv.: Present LVI: Not identified Clinical History Elevated PSA . Assessment & Plan Assessment & Plan (1) Adenocarcinoma of prostate: Code(s): C61 - Malignant neoplasm of prostate Category: Medical Plan He has a follow-up in 3 months with radiation oncology I will send an order for PSA to be done prior and I will follow-up with him in 6 months with a repeat PSA at that time as well. Orders: Orders PSA,Total (Free>4and<10) 2 Months C61 - Malignant neoplasm of prostate Patient Instructions: The patient had an opportunity to ask questions regarding treatment plan. The patient expressed understanding and agreement with the above treatment plan. The patient is aware they should contact our office by phone for worsening of their current condition or the appearance of new symptoms. Compliance is encouraged with any medications and followup testing that is ordered. It is a privilege to be allowed the opportunity to participate in the urologic care of your patient. If you have any questions or concerns regarding treatment for the above conditions please do not hesitate to contact me. The office telephone contact is [phone]. This note is constructed in part using voice recognition software. While every effort has been made to ensure accuracy straight pin making machine operator errors may have been included. Yours sincerely, Edith Delarosa MD Coding Level of Care Code Tele Est Pt Level 3 (17519) Diagnoses Adenocarcinoma of prostate C61
--- OUTSIDE RECORDS SUMMARY | 2025-01-21 13:55 | XMS_ITS | Continuity of Care Document ---
Author Name [facility] Organization [facility] Care Team Providers Care Business Integration Manager Name Role Phone [facility] Unavailable Unavailable Social History Combined list of available smoking, tobacco, and other social history from [facility] of Defense and [facility] facilities. Social History Type Response Date Comment Sourc e This section is an empty social history section. [facility]
== END 2025-01-21 14:26 | disposition home or self-care (01) ==
LOC: HO.HUSH 13:47
PROVIDERS: PCP Internal Medicine; Visit Provider Urology
DX: C61 Malignant neoplasm of prostate (principal)
CPT/HCPCS: 99213

== ENCOUNTER → 2025-01-21 13:47 | Outpatient (BNVA) | payer MEDICARE, BC, SELFPAY | PROVIDERS: PCP Internal Medicine; Visit Provider Urology ==

== ENCOUNTER 2025-03-18 11:00 | Outpatient (AMB) | payer MEDICARE, BC, SELFPAY ==
--- NOTE | 2025-03-18 11:16 | A.OFFPC_ITS ---
Vital Signs 03/18/25 11:22 Height 5 ft 7.24 in Weight 147 lb 2 oz BMI 22.9 BP 132/76 Blood Pressure Location Lt brachial Position Sitting Pulse 65 Pulse Source Pulse Oximeter Temp 99 F Temp Source Temporal Artery Scan Pulse Oximetry (%) 99 Oxygen Delivery Method Room Air Intake Visit Reasons: Establish Care / Dr. Birmingham Evening Or Night Nurse Supervisor Required: No Accompanied by: Self / Same As Patient Allergies Penicillins (PENICILLINS) Allergy (Severe, Verified 03/18/25 13:07) RASH penicillin V Allergy (Unknown, Verified 03/18/25 13:07) Unknown Sulfa (Sulfonamide Antibiotics) Allergy (Unknown, Verified 03/18/25 13:07) Unknown Medication List - Last Reconciled 03/18/25 by Leidy Landin PA-C cyclobenzaprine 10 mg PO TID 90 days escitalopram oxalate 20 mg PO DAILY ibuprofen 800 mg PO TID 90 days lisinopril 20 mg PO DAILY nifedipine ER 30 mg PO DAILY oxycodone 10 mg PO BID PRN tamsulosin (Flomax) 0.4 mg PO DAILY Tobacco use date assessed: 03/18/25 Fall risk assessment: No Falls in past year Last assessed Fall Risk: 03/18/25 Dental Screening Dental Screen Date: 03/18/25 Did you have a dental visit in the last 12 months?: No Did you have a dental problem in the last 6 months where you did not have access to dental care?: No Was dental information given to patient?: No HPI Establish Care / Dr. Birmingham HPI Details The patient is a 65-year-old male presenting for a new patient appointment and medication management. The patient reports lumbar disc bulging, which has been managed with oxycodone for pain relief. He has previously seen an orthopedist and undergone physical therapy in 2021 following a slip and fall incident. The patient was dismissed from his job around the same time. He reports physical therapy provided no symptomatic relief. Orthopedics recommended surgery although patient was hesitant with surgery. Therefore he is currently on oxycodone 10 mg 3 times a day although I discussed with him about decreasing to twice a day and patient was agreeable. The patient has a history of prostate cancer for which he received radiation therapy at [facility] in November and December. His urologist is Dr. Parag Villeda at [facility]. He is currently on multiple medications including escitalopram for anxiety and depression, Flexeril for muscle spasms, lisinopril for hypertension, and tamsulosin for benign prostatic hyperplasia. The patient has not had a physical examination or blood work this year, and his medical records from his previous provider, Dr. Birmingham, are unavailable. He is scheduled for a PSA test in March. A heart murmur was noted during the examination, and he has had an echocardiogram performed by Dr. Kumar. Social History - Employment: The patient was dismissed from his job following a slip and fall incident in 2021. [facility] Medical History Heart murmur Muscle spasm Anxiety and depression Bulging lumbar disc Elevated PSA Lumbar disc disease DJD (degenerative joint disease) HTN (hypertension) Surgical History No pertinent past surgical history Family History Father Heart problem Mother Cerebral hemorrhage Social History Housing: House Alcohol intake: current Alcohol intake frequency: holidays/special occasions only Alcohol type: beer Patient Tobacco Use Status: Never used Tobacco service: Yes Current occupational status: retired Cognitive needs: No Hearing needs: No Vision needs: Yes (rx glasses) Questionnaire PHQ-9 Over the last 2 weeks, how often have you been bothered by any of the following problems? 1. Little interest or pleasure in doing things: not at all 2. Feeling down, depressed, or hopeless: not at all 3. Trouble falling or staying asleep, or sleeping too much: not at all 4. Feeling tired or having little energy: not at all 5. Poor appetite or overeating: not at all 6. Feeling bad about yourself - or that you are a failure or have let yourself or your family down: not at all 7. Trouble concentrating on things, such as reading the newspaper or watching television: not at all 8. Moving or speaking so slowly that other people could have noticed. Or the opposite - being so fidgety or restless that you have been moving around a lot more than usual: not at all 9. Thoughts that you would be better off or of hurting yourself in some way: not at all Total score: 0 Depression Screening Interpretation: Negative Depression Screening Done: Yes 30010 - PHQ-9 Billing: Yes Source: Developed by Drs. Brent Seth, Feli Tierney, Deon Lee and colleagues, with an educational diann from [employer]. Thrive Questionnaire Date Thrive assessed: 03/18/25 I am a: Patient What is your living situation today?: I have a steady place to live Within the past 12 months, did the food you bought not last and you didn't have the money to get more?: Never true Within the past 12 months, did you worry whether your food would run out before you got money to buy more?: Never true Do you have trouble paying for medicines?: No Do you have trouble getting transportation to medical appointments?: No Do you have trouble paying your heating and electricity bill?: No Do you have trouble taking care of your child, family member or friend?: No Do you have trouble with day-to-day activities such as bathing, preparing meals, shopping, managing finances, etc.?: No Are you currently unemployed and looking for a job?: No Are you interested in more education?: No Please select the resources that you would like help with: None Currently or been in a relationship where the following occur: No concerns reported THRIVE Score: 0 AUDIT C Alcohol Use Questionnaire (AUDIT-C) 1. How often do you have a drink containing alcohol?: Monthly or less 2. How many drinks containing alcohol do you have on a typical day when you are drinking?: 1 or 2 3. How often do you have six or more drinks on one occasion?: Never Total Score: 1 Score Reviewed/Action Taken: No SOTO-7 AMB Questionnaire SOTO-7 Date SOTO - 7 assessed: 03/18/25 Feeling nervous, anxious, or on edge: 0 = Not at all Not being able to stop or control worryin = Not at all Worrying too much about different things: 0 = Not at all Trouble relaxin = Not at all Being so restless that it is hard to sit still: 0 = Not at all Becoming easily annoyed or irritable: 0 = Not at all Feeling afraid as if something awful might happen: 0 = Not at all Total SOTO-7 score (0-4 normal; 5-9 mild; 10-14 moderate; 15-21 severe): 0 Source: Developed by Drs. Brent Seth, Feli Tierney, Deon Lee and colleagues, with an educational diann from [employer]. SOTO-7 Assessment Billing SOTO-7 Assessment Tool: SOTO-7 Assessment 02430 Review of Systems Const Details: - Musculoskeletal: Reports lumbar disc bulging. - Cardiovascular: Reports heart murmur. - Psychiatric: Reports anxiety and depression. Physical exam (Primary Care) Vital Signs: Last Vital Signs Temp 99 F 03/18/25 11:22 Pulse 65 03/18/25 11:22 BP 132/76 03/18/25 11:22 Pulse Ox 99 03/18/25 11:22 Oxygen Delivery Method Room Air 03/18/25 11:22 Care Plan Goal for BP management: <140/90 at Goal BMI result Body Mass Index 22.9 Normal BMI Tobacco/Smoking Status: Tobacco use Status Tobacco use date assessed 03/18/25 03/18/25 11:21 Patient Tobacco Use Status Never used Tobacco 03/18/25 11:30 PHQ-9: PHQ-9 Score PHQ-9: Total score 0 03/18/25 11:21 Depression Screening Interpretation: Negative Thrive Assessment: Date of Thrive Assessment Date Thrive assessed 03/18/25 03/18/25 11:21 Currently or been in a relationship where the following occur: No concerns reported Const Other: Appearance: Alert. Oriented X3. No acute distress. Head: Normal external exam. Normocephalic. Atraumatic. Eyes: Pupils are equal, round, and reactive to light. Extraocular movements intact. Conjunctiva and sclera normal. Eyelids normal. Throat: Pharynx normal. Uvula midline. Moist mucous membranes. Neck: Normal inspection. Neck supple. Full range of motion. Cardiovascular: Normal heart rate and rhythm. Heart sound normal. Murmur noted. Pulses normal throughout. Respiratory: No respiratory distress. Painless inspiration. Breath sounds normal. No wheezes/rales/rhonchi noted. Chest nontender. No accessory muscle usage noted or decreased air movement noted. Abdomen: Soft and nontender. Back: Full range of motion noted. Skin: Skin warm and dry. Normal skin color. Normal skin turgor. No rashes/lesions/lacerations noted. Extremities: No lower extremity edema. Extremities exhibit normal range of motion. Neuro: Oriented X 3. Coding Level of Care Code New Pt Level 4 (38352) Complex EM visit Add On G2211 Diagnoses Bulging lumbar disc M51.369 Adenocarcinoma of prostate C61 Anxiety and depression F41.9; F32.A Muscle spasm M62.838 HTN (hypertension) I10 BPH (benign prostatic hyperplasia) N40.0 Heart murmur R01.1 Additional Codes PHQ-9 - 36560 - PHQ-9 Billing: Yes ([id number]) SOTO-7 Assessment Billing - SOTO-7 Assessment Tool: SOTO-7 Assessment 72290 ([id number]) Assessment & Plan Assessment & Plan (1) Bulging lumbar disc: Code(s): M51.369 - Other intervertebral disc degeneration, lumbar region without mention of lumbar back pain or lower extremity pain Category: Medical Plan: The patient is currently on oxycodone for pain management related to lumbar disc bulging. A plan to discuss with Dr. Woody about potentially reducing the oxycodone dosage was mentioned, considering the broader initiative to wean patients off narcotics. I discussed this with Dr. Lagunas he agreed decreasing the patient to oxycodone 10 mg t.i.d. to oxycodone 10 mg b.i.d.. Condition is chronic and stable continue to monitor. (2) Adenocarcinoma of prostate: Code(s): C61 - Malignant neoplasm of prostate Category: Medical Plan: The patient has undergone radiation therapy for prostate cancer and is under the care of Dr. Parag Villeda. A PSA test is scheduled for March to monitor the condition. Condition is chronic and stable continue to monitor. (3) Anxiety and depression: Code(s): F41.9 - Anxiety disorder, unspecified; F32.A - Depression, unspecified Category: Medical Plan: The patient is currently taking escitalopram for anxiety and depression. Condition is chronic and stable continue to monitor. (4) Muscle spasm: Code(s): M62.838 - Other muscle spasm Category: Medical Plan: The patient is on Flexeril for muscle spasms, taken three times a day. Condition is chronic and stable will continue to monitor. (5) HTN (hypertension): Code(s): I10 - Essential (primary) hypertension Category: Medical Plan: The patient is on lisinopril for hypertension management. Condition is chronic and stable continue to monitor. (6) BPH (benign prostatic hyperplasia): Code(s): N40.0 - Benign prostatic hyperplasia without lower urinary tract symptoms Category: Medical Plan: The patient is taking tamsulosin for benign prostatic hyperplasia. Condition is chronic and stable continue to monitor. (7) Heart murmur: Code(s): R01.1 - Cardiac murmur, unspecified Category: Medical Plan: A heart murmur was noted, and the patient has had an echocardiogram performed by Dr. Kumar. Condition is chronic and stable will continue to monitor. Plan Plan Patient was informed and verbally consented to the use of an ambient scribe for clinic note documentation during this visit. 1. Lumbar Disc Bulging The patient is currently on oxycodone for pain management related to lumbar disc bulging. A plan to discuss with Dr. Woody about potentially reducing the oxycodone dosage was mentioned, considering the broader initiative to wean patients off narcotics. I discussed this with Dr. Lagunas he agreed decreasing the patient to oxycodone 10 mg t.i.d. to oxycodone 10 mg b.i.d.. Condition is chronic and stable continue to monitor. 2. Prostate Cancer The patient has undergone radiation therapy for prostate cancer and is under the care of Dr. Parag Holt. A PSA test is scheduled for March to monitor the condition. 3. Anxiety And Depression The patient is currently taking escitalopram for anxiety and depression. 4. Muscle Spasms The patient is on Flexeril for muscle spasms, taken three times a day. 5. Hypertension The patient is on lisinopril for hypertension management. 6. Benign Prostatic Hyperplasia The patient is taking tamsulosin for benign prostatic hyperplasia. 7. Heart Murmur A heart murmur was noted, and the patient has had an echocardiogram performed by Dr. Kumar. During the visit, I discussed the need to potentially reduce the patient's oxycodone dosage due to institutional policies aimed at minimizing narcotic use. I advised the patient to consult with his urologist, Dr. Parag Holt, regarding the management of his prostate cancer-related pain and to ensure continuity of care. We also discussed the importance of scheduling a PSA test in March and the need for regular follow-up appointments to monitor his conditions. Orders: Orders Comprehensive [place]. Panel Fast Today Z00.00 - Encounter for general adult medical examination without abnormal findings Lipid Panel Today Z.00 - Encounter for general adult medical examination without abnormal findings TSH reflex Free T4 Today Z.00 - Encounter for general adult medical examination without abnormal findings Vitamin D 25-OH Total Today Z.00 - Encounter for general adult medical examination without abnormal findings Vitamin B12 and Folate Today Z.00 - Encounter for general adult medical examination without abnormal findings Hemoglobin A1c Today Z.00 - Encounter for general adult medical examination without abnormal findings C Reactive Protein Today Z.00 - Encounter for general adult medical examination without abnormal findings Complete Blood Count Auto Diff Today Z00.00 - Encounter for general adult medical examination without abnormal findings Liver Panel Today Z00.00 - Encounter for general adult medical examination without abnormal findings Magnesium Today Z00.00 - Encounter for general adult medical examination without abnormal findings Medications: New escitalopram oxalate 20 mg PO DAILY 90 tabs 3RF oxycodone Partial Fill upon patient request. 10 mg PO BID PRN 60 tabs 0RF pain lisinopril 20 mg PO DAILY 90 tabs 3RF nifedipine ER 30 mg PO DAILY 90 tabs 3RF tamsulosin (Flomax) 0.4 mg PO DAILY 90 caps 3RF Changed From ibuprofen 800 mg PO TID To ibuprofen 800 mg PO TID 270 tabs 3RF 90 days From cyclobenzaprine 10 mg PO TID To cyclobenzaprine 10 mg PO TID 270 tabs 3RF 90 days Patient Instructions: - Schedule a PSA test in March. - Follow up with Dr. Parag Holt regarding prostate cancer management. - Attend monthly follow-up appointments for medication management. - Fast for 10-12 hours before blood work, consuming only water or black coffee without cream or sugar.
[2025-03-18 11:22] VITALS: BP 132/76; PULSE 65; TEMP 37.2; O2SAT 99; BMI 22.9
--- OUTSIDE RECORDS SUMMARY | 2025-03-18 11:47 | XMS_ITS | Continuity of Care Document ---
Author Name [facility] Organization [facility] Care Team Providers Care [employer]age Cutter Name Role Phone [facility] Unavailable Unavailable Social History Combined list of available smoking, tobacco, and other social history from Department of Defense and [facility] Affairs facilities. Social History Type Response Date Comment Sourc e This section is an empty social history section. [facility]
== END 2025-03-18 12:07 | disposition home or self-care (01) ==
LOC: HO.HMCSH 11:00
PROVIDERS: PCP Internal Medicine; Visit Provider Physician Assistant Medical
DX: M51.369 Other intervertebral disc degeneration, lumbar region without mention of lumbar back pain or lower extremity pain (principal); C61 Malignant neoplasm of prostate; F41.9 Anxiety disorder, unspecified; F32.A Depression, unspecified; M62.838 Other muscle spasm; I10 Essential (primary) hypertension; N40.0 Benign prostatic hyperplasia without lower urinary tract symptoms; R01.1 Cardiac murmur, unspecified

== ENCOUNTER → 2025-03-18 11:00 | Outpatient (BNVA) | payer MEDICARE, BC, SELFPAY | PROVIDERS: PCP Internal Medicine; Visit Provider Physician Assistant Medical | DX: M51.369 Other intervertebral disc degeneration, lumbar region without mention of lumbar back pain or lower extremity pain (principal); C61 Malignant neoplasm of prostate; F41.9 Anxiety disorder, unspecified; F32.A Depression, unspecified; M62.838 Other muscle spasm; I10 Essential (primary) hypertension; N40.0 Benign prostatic hyperplasia without lower urinary tract symptoms; R01.1 Cardiac murmur, unspecified | CPT/HCPCS: 96127; 99202 ==

== ENCOUNTER 2025-04-14 10:10 | Outpatient (AMB) | payer MEDICARE, BC, SELFPAY ==
[2025-04-14 10:21] VITALS: BP 122/58; PULSE 99; RESP 16; TEMP 36.3; O2SAT 99; BMI 23.5
--- NOTE | 2025-04-14 10:21 | A.OFFPC_ITS ---
Vital Signs 04/14/25 10:21 Height 5 ft 7.24 in Weight 151 lb 4 oz BMI 23.5 BP 122/58 L Blood Pressure Location Rt femoral Position Sitting Respiration 16 Pulse 99 Pulse Source Pulse Oximeter Temp 97.3 F Temp Source Temporal Artery Scan Pulse Oximetry (%) 99 Oxygen Delivery Method Room Air Intake Visit Reasons: 4 weeks Check Services Clerk Required: No Accompanied by: Self / Same As Patient Allergies Penicillins (PENICILLINS) Allergy (Severe, Verified 04/14/25 16:10) RASH penicillin V Allergy (Unknown, Verified 04/14/25 16:10) Unknown Sulfa (Sulfonamide Antibiotics) Allergy (Unknown, Verified 04/14/25 16:10) Unknown Medication List - Last Reconciled 04/14/25 by Leidy Landin PA-C cyclobenzaprine 10 mg PO TID 90 days escitalopram oxalate 20 mg PO DAILY ibuprofen 800 mg PO TID 90 days lisinopril 20 mg PO DAILY nifedipine ER 30 mg PO DAILY oxycodone 10 mg PO BID PRN tamsulosin (Flomax) 0.4 mg PO DAILY Tobacco use date assessed: 03/18/25 Fall risk assessment: No Falls in past year Last assessed Fall Risk: 03/18/25 Dental Screening Dental Screen Date: 03/18/25 Did you have a dental visit in the last 12 months?: No Did you have a dental problem in the last 6 months where you did not have access to dental care?: No Was dental information given to patient?: No HPI 4 weeks HPI Details The patient is a 65-year-old male presenting with a follow-up for pain management related to chronic back pain. The chronic back pain is attributed to bulging discs in the lumbar region, which has been managed with oxycodone. The patient reports significant pain, especially when getting out of bed, and has been on a regimen of 10 mg oxycodone twice daily. He is active and engages in yard work, which exacerbates his pain. The patient has a history of prostate cancer, for which he underwent radiation therapy. He is scheduled for a PSA test this month to evaluate the effectiveness of the treatment. The patient is under the care of Dr. Serrato at [facility] for his prostate cancer management. Social History - Level of activity: The patient is acti ve and engages in yard work. [facility] Medical History (Updated 04/14/25 @ 16:12 by Leidy Landin PA-C) History of prostate cancer Chronic pain syndrome Heart murmur Muscle spasm Anxiety and depression Bulging lumbar disc Elevated PSA Lumbar disc disease DJD (degenerative joint disease) HTN (hypertension) Surgical History No pertinent past surgical history Family History Father Heart problem Mother Cerebral hemorrhage Social History Housing: House Alcohol intake: current Alcohol intake frequency: holidays/special occasions only Alcohol type: beer Patient Tobacco Use Status: Never used Tobacco service: Yes Current occupational status: retired Cognitive needs: No Hearing needs: No Vision needs: Yes (rx glasses) Questionnaire PHQ-9 Over the last 2 weeks, how often have you been bothered by any of the following problems? 1. Little interest or pleasure in doing things: not at all 2. Feeling down, depressed, or hopeless: not at all 3. Trouble falling or staying asleep, or sleeping too much: not at all 4. Feeling tired or having little energy: not at all 5. Poor appetite or overeating: not at all 6. Feeling bad about yourself - or that you are a failure or have let yourself or your family down: not at all 7. Trouble concentrating on things, such as reading the newspaper or watching television: not at all 8. Moving or speaking so slowly that other people could have noticed. Or the opposite - being so fidgety or restless that you have been moving around a lot more than usual: not at all 9. Thoughts that you would be better off or of hurting yourself in some way: not at all Total score: 0 Depression Screening Interpretation: Negative Depression Screening Done: Yes 24041 - PHQ-9 Billing: Yes Source: Developed by Drs. Brent Seth, Feli Tierney, Deon Lee and colleagues, with an educational diann from [employer]. Thrive Questionnaire Date Thrive assessed: 03/18/25 I am a: Patient What is your living situation today?: I have a steady place to live Within the past 12 months, did the food you bought not last and you didn't have the money to get more?: Never true Within the past 12 months, did you worry whether your food would run out before you got money to buy more?: Never true Do you have trouble paying for medicines?: No Do you have trouble getting transportation to medical appointments?: No Do you have trouble paying your heating and electricity bill?: No Do you have trouble taking care of your child, family member or friend?: No Do you have trouble with day-to-day activities such as bathing, preparing meals, shopping, managing finances, etc.?: No Are you currently unemployed and looking for a job?: No Are you interested in more education?: No Please select the resources that you would like help with: None Currently or been in a relationship where the following occur: No concerns reported THRIVE Score: 0 AUDIT C Alcohol Use Questionnaire (AUDIT-C) 1. How often do you have a drink containing alcohol?: Monthly or less 2. How many drinks containing alcohol do you have on a typical day when you are drinking?: 1 or 2 3. How often do you have six or more drinks on one occasion?: Never Total Score: 1 Score Reviewed/Action Taken: No SOTO-7 AMB Questionnaire SOTO-7 Date SOTO - 7 assessed: 03/18/25 Feeling nervous, anxious, or on edge: 0 = Not at all Not being able to stop or control worryin = Not at all Worrying too much about different things: 0 = Not at all Trouble relaxin = Not at all Being so restless that it is hard to sit still: 0 = Not at all Becoming easily annoyed or irritable: 0 = Not at all Feeling afraid as if something awful might happen: 0 = Not at all Total SOTO-7 score (0-4 normal; 5-9 mild; 10-14 moderate; 15-21 severe): 0 Source: Developed by Drs. Brent Seth, Feli Tierney, Deon Lee and colleagues, with an educational diann from [employer]. SOTO-7 Assessment Billing SOTO-7 Assessment Tool: SOTO-7 Assessment 19720 Review of Systems Const Details: - Musculoskeletal: Reports significant back pain, especially when getting out of bed. - Genitourinary: Reports nocturia related to prostate cancer. All systems reviewed & are unremarkable except as noted in HPI and below Physical exam (Primary Care) Vital Signs: Last Vital Signs Temp 97.3 F 04/14/25 10:21 Pulse 99 04/14/25 10:21 Resp 16 04/14/25 10:21 BP 122/58 L 04/14/25 10:21 Pulse Ox 99 04/14/25 10:21 Oxygen Delivery Method Room Air 04/14/25 10:21 Care Plan Goal for BP management: <140/90 at Goal BMI result Body Mass Index 23.5 Normal BMI Tobacco/Smoking Status: Tobacco use Status Tobacco use date assessed 03/18/25 04/14/25 10:24 Patient Tobacco Use Status Never used Tobacco 04/14/25 10:24 PHQ-9: PHQ-9 Score PHQ-9: Total score 0 04/14/25 11:04 Depression Screening Interpretation: Negative Thrive Assessment: Date of Thrive Assessment Date Thrive assessed 03/18/25 04/14/25 10:24 Currently or been in a relationship where the following occur: No concerns reported Const Other: Appearance: Alert. Oriented X3. No acute distress. Head: Normal external exam. Normocephalic. Atraumatic. Eyes: Pupils are equal, round, and reactive to light. Extraocular movements intact. Conjunctiva and sclera normal. Eyelids normal. Throat: Pharynx normal. Uvula midline. Moist mucous membranes. Neck: Normal inspection. Neck supple. Full range of motion. . Cardiovascular: Normal heart rate and rhythm. Respiratory: No respiratory distress. Painless inspiration. Back: Full range of motion noted. Skin: Skin warm and dry. Normal skin color. Extremities: No lower extremity edema. Extremities exhibit normal range of motion. Coding Level of Care Code Est Pt Level 4 (73152) Complex EM visit Add On G2211 Diagnoses Chronic pain syndrome G89.4 History of prostate cancer Z85.46 Additional Codes SOTO-7 Assessment Billing - SOTO-7 Assessment Tool: SOTO-7 Assessment 30050 ([id number]) PHQ-9 - 96807 - PHQ-9 Billing: Yes ([id number]) Assessment & Plan Assessment & Plan (1) Chronic pain syndrome: Code(s): G89.4 - Chronic pain syndrome Category: Medical Plan: The patient will continue with the current regimen of oxycodone 10 mg twice daily for pain management. A urine drug screen will be conducted prior to refilling the prescription to ensure compliance and safety. The patient is encouraged to follow up with pain management for alternative therapies. (2) History of prostate cancer: Code(s): Z85.46 - Personal history of malignant neoplasm of prostate Category: Medical Plan: The patient is scheduled for a PSA test this month to assess the effectiveness of previous radiation therapy. Continued follow-up with Dr. Serrato at [facility] is advised for ongoing management. Plan Plan Patient was informed and verbally consented to the use of an ambient scribe for clinic note documentation during this visit. 1. Chronic Back Pain The patient will continue with the current regimen of oxycodone 10 mg twice daily for pain management. A urine drug screen will be conducted prior to refilling the prescription to ensure compliance and safety. The patient is encouraged to follow up with pain management for alternative therapies. Patient understands that pain management will not be taking over his pain management regimen or prescribing him any narcotics. 2. Prostate Cancer The patient is scheduled for a PSA test this month to assess the effectiveness of previous radiation therapy. Continued follow-up with Dr. Serrato at [facility] is advised for ongoing management. During the visit, I discussed the importance of adhering to the current pain management plan, including the use of oxycodone and the necessity of a urine drug screen before refills. I also emphasized the need for follow-up with pain management for exploring alternative therapies. For prostate cancer, I advised the patient to proceed with the scheduled PSA test and maintain regular follow- ups with Dr. Serrato. Orders: Orders Drug Screen Urine Today G89.4 - Chronic pain syndrome Referrals Pain Management Referral G89.4 - Chronic pain syndrome, M51.369 - Other intervertebral disc degeneration, lumbar region without mention of lumbar back pain or lower extremity pain Patient Instructions: - Continue taking oxycodone 10 mg twice daily as prescribed. - Complete the urine drug screen before the next prescription refill. - Follow up with pain management for alternative therapies. - Proceed with the scheduled PSA test for prostate cancer evaluation. - Maintain regular follow-ups with Dr. Serrato for prostate cancer management.
--- OUTSIDE RECORDS SUMMARY | 2025-04-14 11:18 | XMS_ITS | Continuity of Care Document ---
Author Name [facility] Organization [facility] Care Team Providers Care Medicare Nurse Name Role Phone [facility] Unavailable Unavailable Social History Combined list of available smoking, tobacco, and other social history from Department of Defense and Veterans Affairs facilities. Social History Type Response Date Comment Sourc e This section is an empty social history section. DoD
--- OUTSIDE RECORDS SUMMARY | 2025-04-14 11:19 | XMS_ITS | Clinical Summary ---
Author Organization [facility] Address [address] [facility] [address] [place] [address] Phone Care Team Providers Care Plate Painter Apprentice Name Role Phone Markell Birmingham MD Primary Care Provider +1- [phone] Allergies Active Allergy Reactions Criticality Noted Date Comments Penicillins 09/29/2024 Medications lisinopril (PRINIVIL,ZESTR IL) 20 MG tablet Take 1 tablet by mouth every morning. 07/18/2024 Active escitalopram oxalate (LEXAPRO) 20 MG tablet Take 1 tablet by mouth every morning. 09/07/2024 Active NIFEdipine (PROCARDIA XL) 30 MG 24 hr tablet Take 1 tablet by mouth every morning. 09/07/2024 Active ibuprofen (ADVIL,MOTRIN) 800 MG tablet Take 800 mg by mouth 3 (three) times a day as needed. 09/19/2024 Active oxyCODONE HCl 10 mg Tab Take 10 mg by mouth 3 (three) times a day. 09/04/2024 Active cyclobenzaprine (FLEXERIL) 10 MG tablet Take 10 mg by mouth 3 (three) times a day as needed for muscle spasms. Active tamsulosin (FLOMAX) 0.4 mg Cap Take 1 capsule (0.4 mg total) by mouth daily. Take half hour after supper 60 capsule 3 12/14/2024 Active Medication-Free Text Moringa for lower psa Active Medication-Free Text Anna Marie root for lower psa Active Active Problems Problem Noted Date Diagnosed Date Hyperlipidemia 10/14/2024 Anxiety 10/14/2024 Depression 10/14/2024 Hypertension 10/14/2024 Malignant neoplasm of prostate 07/09/2024 Chronic low back pain 07/09/2024 Degeneration of intervertebr al disc of lumbar region with discogenic back pain 07/09/2024 Encounters Date Type Department Care Team Description 01/20/2025 10:20 AM EDT Procedure visit [facility] Rad Onc [address] [place] [address] Patrick Serrato MD Malignant neoplasm of prostate (Primary Dx) 01/20/2025 Radiation Completion Encounter [facility] Rad Onc [address] [place] [address] Patrick Serrato MD Malignant neoplasm of prostate (Primary Dx) 01/20/2025 Documentation [facility] Rad Onc [address] [place] [address] Montserrat Menjivar MA Rad Onc discharge (Malignant neoplasm of prostate) 01/15/2025 Documentation [facility] Rad Onc [address] [place] [address] Markie Eugene MA Rad onc discharge; Breast Cancer (Malignant neoplasm of prostate) 01/14/2025 Orders Only [facility] Rad Onc [address] [place] [address] Joanna Ibarra, NEHA Malignant neoplasm of prostate (Primary Dx) 01/12/2025 10:30 AM EDT Procedure visit [facility] Rad Onc [address] [place] [address] Patrick Serrato MD Malignant neoplasm of prostate (Primary Dx) from Last 3 Months Social History Tobacco Use Types Packs/Day Years Used Date Smoking Tobacco: Never Smokeless Tobacco: Never Tobacco Cessation:Counseling Given: Not Answered Alcohol Use Standard Drinks/Week Comments Never 0 (1 standard drink = 0.6 oz pure alcohol) sober 08/26/2024 used 15 beers a per day Education Answer Date Recorded Are you interested in more education? Not on laura e 06/24/2024 Are you concerned about learning? Not on file 06/24/2024 No 06/24/2024 No 06/24/2024 Digital Access Answer Date Recorded No 06/24/2024 No 06/24/2024 Reliable internet access at home? Not on file 06/24/2024 Device with a working camera? Not on file Sex and Gender Information Value Date Recorded Sex Assigned at Not on file Legal Sex Male 2:03 PM EDT Gender Identity Not on file Sexual Orientation Not on file Last Filed Vital Signs Vital Sign Reading Time Taken Comments Blood Pressure 131/71 01/20/2025 10:18 AM EDT Pulse 84 01/20/2025 10:18 AM EDT Temperature 36.8 C (98.2 F) 01/20/2025 10:18 AM EDT Respiratory Rate 16 12/14/2024 10:28 AM EDT Oxygen Saturation 98% 01/20/2025 10:18 AM EDT Inhaled Oxygen Concentration - - Weight 64 kg (141 lb) 01/04/2025 10:46 AM EDT Height 172.7 cm (5' 8 ) 10/15/2024 8:45 AM EST Body Mass Index 21.44 10/15/2024 8:45 AM EST Plan of Treatment Upcoming Encounters Date Type Department Care Team (Late st Contact Info) Description 04/20/2025 3:00 PM EDT Telemedicine - audio only [facility] Rad Onc [address] [place] [phone] Patrick Serrato MD [address] [place] [address] [email or web address] Health Maintenance Due Date Last Done Comments Adult Td,Tdap Booster 1960 BLOOD PRESSURE 1960 CREATININE LEVEL 1960 LIPID PANEL 1960 POTASSIUM LEVEL 1960 DEPRESSION SCREENING 1972 HEPATITIS C SCREENING 12/31/1977 HIV ONE-TIME SCREENING (18-6 5 YEARS) 12/31/1977 PNEUMOCOCCAL VACCINES (50+ y ears) (1 of 2 - PCV) 12/31/1978 ZOSTER VACCINES (1 of 2) 12/31/1978 COLOGUARD 12/31/2004 COLONOSCOPY 12/31/2004 COLORECTAL CANCER SCREENING 12/31/2004 FIT TEST 12/31/2004 FOBT 12/31/2004 SIGMOIDOSCOPY 12/31/2004 VIRTUAL COLONOSCOPY 12/31/2004 COVID-19 VACCINE ( - 2023-2 5 season) 2024 RSV VACCINE (1 - 1-dose 75+ series) 12/31/2034 SMOKING STATUS SCREENING (On ce After 26 Yrs) Completed 10/15/2024 HEPATITIS A VACCINES Aged Out No long er eligible based on patient's age to complete this topic HIB VACCINES Aged Out No longer eligi ble based on patient's age to complete this topic MENINGOCOCCAL VACCINES (ACWY) Aged Out No longer eligible based on patient's age to complete this topic MENINGOCOCCAL VACCINES (B) Aged Out N o longer eligible based on patient's age to complete this topic Medical Devices Implanted Type Area Vault Manager Device Identifier Shelf Expiration Date Model / Serial / Lot Marker Fiducial Preloaded Visicoil Mr - [id number] Implanted:Qty: 1 on 10/15/2024 by Patrick Serrato MD at [facility] N/A: Prostate [employer] [id number] 06/07/2028 [id number] / / [id number] Marker Fiducial Preloaded Visicoil Mr - [id number] Implanted:Qty: 1 on 10/15/2024 by Patrick Serrato MD at [facility] N/A: Prostate [employer] [id number] 06/07/2028 [id number] -[id number] / / [id number] [place] [place] [address] [facility] MEDIC[facility] PART A & B [facility] PART [facility] & B [facility] MEDIC[facility] PART A & B [facility] MEDIC[facility] PART [facility] & B [facility] MEDICARE PART A & [place] [id number] [facility] MEDICARE PART A & B Advance Directives For more information, please contact: [phone] (9AM - 5PM [facility], Saturday-Saturday) * Full Code (Latest Code Status on File) Date Activated Date Inactivated Comments 10/15/2024 9:03 AM Question Answer Comments Code Status Confirmed With: Patient Care Teams Plate Painter Apprentice Relationship Specialty Start Date End Date Markell Birmingham MD [address] [place] [address] PCP - General Internal Medicine 06/24/24 Additional Source Comments The information contained in this document represents components of the legal health record. It is not the complete legal health record.[facility]
== END 2025-04-14 11:07 | disposition home or self-care (01) ==
LOC: HO.HMCSH 10:10
PROVIDERS: PCP Physician Assistant Medical; Visit Provider Physician Assistant Medical
DX: G89.4 Chronic pain syndrome (principal); Z85.46 Personal history of malignant neoplasm of prostate

== ENCOUNTER → 2025-04-14 10:10 | Outpatient (BNVA) | payer MEDICARE, BC, SELFPAY | PROVIDERS: PCP Internal Medicine; Visit Provider Physician Assistant Medical | DX: G89.4 Chronic pain syndrome (principal); Z85.46 Personal history of malignant neoplasm of prostate | CPT/HCPCS: 96127; 99212 ==

== ENCOUNTER 2025-04-20 08:13 | Outpatient (REF) | payer MEDICARE, BC, SELFPAY ==
--- OUTSIDE RECORDS SUMMARY | 2025-04-20 08:18 | XMS_ITS | Continuity of Care Document ---
Author Name [facility] Organization [facility] Care Team Providers Care Lead Android Developer Name Role Phone [facility] Unavailable Unavailable Social History Combined list of available smoking, tobacco, and other social history from Department of Defense and Veterans Affairs facilities. Social History Type Response Date Comment Sourc e This section is an empty social history section. DoD
--- OUTSIDE RECORDS SUMMARY | 2025-04-20 08:20 | XMS_ITS | Encounter Summary ---
Author Organization [facility] Address [address] [facility] [address] [place] [address] Phone Care Team Providers Care Police Booking Officer Name Role Phone Markell Birmingham MD Primary Care Provider +1- [phone] Encounter Details Date Type Department Care Team (Late Contact Info) Description 10/15/2024 Procedure Pass OR Admitting Dept - Virtual Department [address] [place] [address] Social History Tobacco Use Types Packs/Day Years Used Date Smoking Tobacco: Never Smokeless Tobacco: Never Alcohol Use Standard Drinks/Week Comments Never 0 [...] on file Sexual Orientation Not on file documented as of this encounter Plan of Treatment Upcoming Encounters Date Type Department Care Team (Late Contact Info) Description 04/20/2025 3:00 PM EDT Telemedicine - audio only [facility] Rad Onc [address] [place] [address] Patrick Serrato MD [address] [place] [address] [email or web address] documented as of this encounter Visit Diagnoses Not on filedocumented in this encounter Care Teams Police Booking Officer Relationship Specialty Start Date End Date Markell Birmingham MD [address] [place] [address] PCP - General Internal Medicine 06/24/24 documented as of this encounter Additional Source Comments The information contained in this document represents components of the legal health record. It is not the complete legal health record.[facility]
--- OUTSIDE RECORDS SUMMARY | 2025-04-20 08:20 | XMS_ITS | Clinical Summary ---
Author Organization [facility] Address [address] [facility] [address] [place] [address] Phone Care Team Providers Care Slip Cover Cutter Name Role Phone Markell Birmingham MD Primary Care Provider +1- [phone] Allergies Active Allergy Reactions Criticality Noted Date [...] Description 01/20/2025 10:20 AM EDT Procedure visit [facility] Rad Onc [address] [place] [address] Patrick Serrato MD Malignant neoplasm of prostate (Primary Dx) 01/20/2025 Radiation Completion Encounter [facility] Rad Onc [address] [place] [address] Patrick Serrato MD Malignant neoplasm of prostate (Primary Dx) 01/20/2025 Documentation [facility] Rad Onc [address] [place] [address] Montserrat Menjivar MA Rad Onc discharge (Malignant neoplasm of prostate) from Last 3 Months Social History Tobacco [...] 3:00 PM EDT Telemedicine - audio only [facility] Rad Onc [address] [place] [address] Patrick Serrato MD [address] [place] [address] [email or web address] Health Maintenance Due Date Last Done Comments [...] this topic Medical Devices Implanted Type Area Customer Service Representative Teller Device Identifier Shelf Expiration Date Model / Serial / Lot Marker Fiducial Preloaded Visicoil Mr - [id number] Implanted:Qty: 1 on 10/15/2024 by Patrick Serrato MD at [facility] N/A: Prostate [employer] [id number] 06/07/2028 [id number] / / [id number] Marker Fiducial Preloaded Visicoil Mr - [id number] Implanted:Qty: 1 on 10/15/2024 by Patrick Serrato MD at [facility] N/A: Prostate [employer] [id number] 06/07/2028 [id number] -[id number] / / [id number] Insurance [facility] MEDICARE PART A & B [facility] MEDICARE PART A & B [facility] MEDICARE PART A & B [facility] MEDICARE PART A & [place] [address] [facility] MEDICARE PART A & B [facility] [place] [address] [facility] MEDICARE PART A & B Advance Directives For more information, please contact: [phone] (9AM - 5PM [facility], Saturday-Saturday) * Full Code (Latest Code Status on File) Date Activated Date Inactivated Comments 10/15/2024 9:03 AM Question Answer Comments Code Status Confirmed With: Patient Care Teams Slip Cover Cutter Relationship Specialty Start Date End Date Markell Birmingham MD [address] [place] [id number] PCP - General Internal Medicine 06/24/24 Additional Source Comments The information contained in this document represents components of the legal health record. It is not the complete legal health record.[facility]
[2025-04-20 10:16] LABS: MANUAL DIFF FLAG NO
[2025-04-20 10:19] LABS: Hematocrit 34.9 % (42.0-52.0); Hemoglobin 11.8 g/dl (14.0-18.0); Imm Gran Abs Auto 0.02 X10*3/uL (0.00-0.03); Imm Gran Pct Auto 0.4 % (0.0-0.4); Lymphocytes Absolute Auto 0.6 X10*3/uL (1.2-4.9); Mean Corpuscular HGB Conc 33.8 g/dl (31.0-36.0); Mean Corpuscular Hemoglobin 32.6 pg (27.0-33.0); Mean Corpuscular Volume 96.4 fL (80.0-98.0); NRBC Abs Auto 0.000 X10*3/uL (0.0-0.012); NRBC Pct Auto 0.0 /100WBC (0.0-0.2); Platelet Count 249 X10*3/uL (160-400); Red Blood Count 3.62 X10*6/uL (4.60-5.80); White Blood Count 5.4 X10*3/uL (4.8-10.8)
[2025-04-20 10:35] LABS: Hemoglobin A1C 94.1984 umol/L; Total Hemoglobin (HGBA1C) 3133.0245 umol/L
[2025-04-20 10:50] LABS: PSA,Total (Free>4and<10) 1.95 ng/mL (0.00-4.00)
[2025-04-20 10:51] LABS: Alanine Aminotransferase 21 U/L (0-40); Albumin Level 4.1 g/dL (3.5-5.0); Alkaline Phosphatase 80 U/L (39-117); Aspartate Amino Transferase 33 U/L (5-37); Cholesterol 140 mg/dL (<200); HDL Cholesterol 49 mg/dL (>40); Magnesium 2.0 mg/dL (1.6-2.6); Total Protein 7.4 g/dL (6.5-8.0); Triglycerides 42 mg/dL (<150)
[2025-04-20 10:54] LABS: Cannabinoid Screen Urine Not Detected (Not Detect)
[2025-04-20 11:03] LABS: Folate 12.6 ng/mL (> or = 4.0); Vitamin B12 541 pg/mL (200-900)
== END 2025-04-20 08:14 | disposition home or self-care (01) ==
LOC: HO.HMGCLDS 08:13
PROVIDERS: Urology; PCP Internal Medicine; Visit Provider Physician Assistant Medical
DX: Z00.00 Encounter for general adult medical examination without abnormal findings (principal); Z12.5 Encounter for screening for malignant neoplasm of prostate; Z51.81 Encounter for therapeutic drug level monitoring; Z13.6 Encounter for screening for cardiovascular disorders; C61 Malignant neoplasm of prostate; G89.4 Chronic pain syndrome
CPT/HCPCS: 36415; 80061; 80076; 80307; 82306; 82607; 82746; 83036; 83735; 84153; 84443; 85025; 86140

== ENCOUNTER 2025-04-29 08:02 | Outpatient (REF) | payer MEDICARE, BC, SELFPAY ==
--- OUTSIDE RECORDS SUMMARY | 2025-04-29 08:16 | XMS_ITS | Encounter Summary ---
Author Organization [facility] Address [address] [facility] [address] [place] [address] Phone Care Team Providers Care Visual Coordinator Name Role Phone Markell Birmingham MD Primary Care Provider +1- [phone] Encounter Details Date Type Department Care Team (Late st Contact Info) Description 10/15/2024 Procedure Pass OR Admitting Dept - Virtual Department [address] [place] [address] Social History Tobacco Use Types Packs/Day Years [...] as of this encounter Plan of Treatment Not on file documented as of this encounter Visit Diagnoses Not on filedocumented in this encounter Care Teams Visual Coordinator Relationship Specialty Start Date End Date Markell Birmingham MD [address] [place] [address] PCP - General Internal Medicine 06/24/24 documented as of this encounter Additional Source Comments The information contained in this document represents components of the legal health record. It is not the complete legal health record.[facility]
[2025-04-29 10:38] LABS: Alanine Aminotransferase 25 U/L (0-40); Albumin Level 4.3 g/dL (3.5-5.0); Alkaline Phosphatase 82 U/L (39-117); Anion Gap 13 (12-20); Aspartate Amino Transferase 35 U/L (5-37); Blood Urea Nitrogen 13 mg/dL (9-16); Calcium 8.8 mg/dL (8.4-10.2); Carbon Dioxide 27 mmol/L (22-29); Chloride 102 mmol/L (96-108); Estimated Glomerular Filt Rate > 60; Potassium 3.8 mmol/L (3.3-5.1); Sodium 138 mmol/L (135-145); Total Protein 7.5 g/dL (6.5-8.0)
== END 2025-04-29 08:03 | disposition home or self-care (01) ==
LOC: HO.HMGCLDS 08:02
PROVIDERS: Visit Provider Physician Assistant Medical
DX: Z00.00 Encounter for general adult medical examination without abnormal findings (principal)
CPT/HCPCS: 36415; 80053

== ENCOUNTER 2025-05-11 09:38 | Outpatient (REF) | payer MEDICARE, BC, SELFPAY ==
--- OUTSIDE RECORDS SUMMARY | 2025-05-11 12:16 | XMS_ITS | Encounter Summary ---
Author Organization [facility] Address [address] [facility] [address] [place] [address] Phone Care Team Providers Care Core Inserter Name Role Phone Markell Birmingham MD Primary Care Provider +1- [phone] Encounter Details Date Type Department Care Team (Late st Contact Info) Description 10/15/2024 Procedure Pass OR Admitting Dept - Virtual Department [address] [place] [address] Social History Tobacco Use Types Packs/Day Years [...] on filedocumented in this encounter Care Teams Core Inserter Relationship Specialty Start Date End Date Markell Birmingham MD [address] [place] [address] PCP - General Internal Medicine 06/24/24 documented as of this encounter Additional Source Comments The information contained in this document represents components of the legal health record. It is not the complete legal health record.[facility]
--- OUTSIDE RECORDS SUMMARY | 2025-05-11 12:16 | XMS_ITS | Clinical Summary ---
Author Organization [facility] Address [address] [facility] [address] [place] [address] Phone Care Team Providers Care Street And Building Decorator Name Role Phone Markell Birmingham MD Primary Care Provider +1- [phone] Allergies Active Allergy Reactions Criticality Noted Date [...] Encounters Date Type Department Care Team Description 04/20/2025 3:00 PM EDT Telemedicine - audio only [facility] Rad Onc [address] [place] [address] Patrick Serrato MD Malignant neoplasm of prostate [...] 10/15/2024 8:45 AM EST Plan of Treatment Health Maintenance Due Date Last Done Comments [...] FOBT 12/31/2004 SIGMOIDOSCOPY 12/31/2004 VIRTUAL COLONOSCOPY 12/31/2004 INFLUENZA VACCINE (#1) 2025 COVID-19 VACCINE ( - 2023-2 5 season) 2025 RSV VACCINE (1 - 1-dose 75+ series) [...] this topic Medical Devices Implanted Type Area Diamond Finishing Supervisor Device Identifier Shelf Expiration Date Model / Serial / Lot Marker Fiducial Preloaded Visicoil Mr - [id number] Implanted:Qty: 1 on 10/15/2024 by Patrick Serrato MD at [facility] N/A: Prostate RADIOMED [employer] [id number] 06/07/2028 [id number] / / [id number] Marker Fiducial Preloaded Visicoil Mr - [id number] Implanted:Qty: 1 on 10/15/2024 by Patrick Serrato MD at [facility] N/A: Prostate [employer] [id number] 06/07/2028 [id number] -[id number] / / [id number] Insurance PRISCILLA PHILLIPS, JAYA [id number] [facility] FEDERAL MEDICARE PART A & B [facility] MEDICARE PART A & B [facility] MEDICARE PART A & B [facility] MEDICARE PART A & B [facility] MEDICARE PART A & B [facility] MEDICARE PART A & B Advance Directives For more information, please contact: [phone] (9AM - 5PM [facility], Saturday-Saturday) * Full Code (Latest Code Status on File) Date Activated Date Inactivated Comments 10/15/2024 9:03 AM Question Answer Comments Code Status Confirmed With: Patient Care Teams Street And Building Decorator Relationship Specialty Start Date End Date Markell Birmingham MD [address] [place] [address] PCP - General Internal Medicine 06/24/24 Additional Source Comments The information contained in this document represents components of the legal health record. It is not the complete legal health record.[facility]
[2025-05-11 14:09] LABS: Cannabinoid Screen Urine Not Detected (Not Detect)
== END 2025-05-11 09:39 | disposition home or self-care (01) ==
LOC: HO.HMGCLDS 09:38
PROVIDERS: PCP Physician Assistant Medical; Visit Provider Physician Assistant Medical
DX: Z51.81 Encounter for therapeutic drug level monitoring (principal); G89.4 Chronic pain syndrome
CPT/HCPCS: 80307

== ENCOUNTER 2025-05-13 10:10 | Outpatient (AMB) | payer MEDICARE, BC, SELFPAY ==
--- NOTE | 2025-05-13 09:56 | A.OFFPC_ITS ---
Intake Visit Reasons: 1 month f/u Allergies Penicillins (PENICILLINS) Allergy (Severe, Verified 05/13/25 10:17) RASH penicillin V Allergy (Unknown, Verified 05/13/25 10:17) Unknown Sulfa (Sulfonamide Antibiotics) Allergy (Unknown, Verified 05/13/25 10:17) Unknown Medication List - Last Reconciled 05/13/25 by Leidy Landin PA-C cyclobenzaprine 10 mg PO TID 90 days escitalopram oxalate 20 mg PO DAILY ibuprofen 800 mg PO TID 90 days lisinopril 20 mg PO DAILY nifedipine ER 30 mg PO DAILY oxycodone 10 mg PO BID PRN tamsulosin (Flomax) 0.4 mg PO DAILY Tobacco use date assessed: 03/18/25 Dental Screening Dental Screen Date: 03/18/25 HPI 1 month f/u HPI Details The patient is a 65-year-old male presenting with a follow-up for narcotic refill and management of prostate cancer-related symptoms. The patient reports a history of prostate cancer, which has been associated with increased urinary frequency, particularly at night. He has not yet received recent results from his oncologist, Dr. Delarosa, and is awaiting further communication. The patient also reports right knee pain, which began after a possible twisting injury while walking. He describes the pain as persistent and suggests the need for an X-ray to rule out any metastasis from prostate cancer. Additionally, the patient experiences back pain, which has been increasing in severity. He is currently on oxycodone 10 mg twice daily, which he finds inadequate for pain management. The patient was previously on a higher dose of oxycodone, which was reduced as part of a narcotic weaning process. [facility] Medical History Right knee pain History of prostate cancer Chronic pain syndrome Heart murmur Muscle spasm Anxiety and depression Bulging lumbar disc Elevated PSA Lumbar disc disease DJD (degenerative joint disease) HTN (hypertension) Surgical History No pertinent past surgical history Family History Father Heart problem Mother Cerebral hemorrhage Social History Housing: House Alcohol intake: current Alcohol intake frequency: holidays/special occasions only Alcohol type: beer Patient Tobacco Use Status: Never used Tobacco service: Yes Current occupational status: retired Cognitive needs: No Hearing needs: No Vision needs: Yes (rx glasses) Questionnaire Thrive Questionnaire Date Thrive assessed: 03/18/25 SOTO-7 AMB Questionnaire SOTO-7 Date SOTO - 7 assessed: 03/18/25 Source: Developed by Drs. Brent Seth, Feli Tierney, Deon Lee and colleagues, with an educational diann from [employer]. Review of Systems Const Details: - Genitourinary: Reports increased urinary frequency, particularly at night. - Musculoskeletal: Reports persistent right knee pain following a twisting injury. - Musculoskeletal: Reports increasing back pain. All systems reviewed & are unremarkable except as noted in HPI and below Physical exam (Primary Care) Tobacco/Smoking Status: Tobacco use Status Tobacco use date assessed 03/18/25 05/13/25 10:01 Patient Tobacco Use Status Never used Tobacco 05/13/25 10:01 Thrive Assessment: Date of Thrive Assessment Date Thrive assessed 03/18/25 05/13/25 10:01 Telehealth Telehealth Telehealth Platform: Telephone Location of provider rendering services: practice address Location of patient: address on file Patient Identification confirmed using: Name, : Yes Telehealth method: voice only Patient verbally consented to treatment: Yes Patient verbally consented to billing insurance company: Yes Patient informed of any privacy concerns related to visit: Yes Minutes spent on Phone/Video with Pt.: 15 Coding Level of Care Code Tele Est Pt Level 4 (59066) Complex EM visit Add On G2211 Diagnoses Chronic pain syndrome G89.4 Adenocarcinoma of prostate C61 Right knee pain M25.561 Bulging lumbar disc M51.369 Assessment & Plan Assessment & Plan (1) Chronic pain syndrome: Code(s): G89.4 - Chronic pain syndrome Category: Medical Plan: The patient will continue with current regimen of oxycodone 10 mg twice a day for pain management. Patient already performed to drug urine screens and he was negative for all drugs other than oxycodone. He has Narcan at home. He signed narcotic contract. He is agreeable to returning every 30 days. Will speak to the patient's oncologist for better pain control of his prostate cancer. (2) Adenocarcinoma of prostate: Code(s): C61 - Malignant neoplasm of prostate Category: Medical Plan: The patient is experiencing increased urinary frequency and back pain, which may be related to prostate cancer. The plan includes communicating with the oncologist to determine if adjustments to the current pain management regimen are necessary. (3) Right knee pain: Code(s): M25.561 - Pain in right knee Category: Medical Plan: The patient reports persistent right knee pain following a twisting injury. An X-ray is recommended to rule out any metastasis from prostate cancer. (4) Bulging lumbar disc: Code(s): M51.369 - Other intervertebral disc degeneration, lumbar region without mention of lumbar back pain or lower extremity pain Category: Medical Plan: The patient reports increasing back pain, which may be inadequately managed with the current oxycodone regimen. The plan is to maintain the current dosage of oxycodone 10 mg twice daily while awaiting further guidance from the oncologist. Plan Plan Patient was informed and verbally consented to the use of an ambient scribe for clinic note documentation during this visit. 1. Prostate Cancer The patient is experiencing increased urinary frequency and back pain, which may be related to prostate cancer. The plan includes communicating with the oncologist to determine if adjustments to the current pain management regimen are necessary. 2. Right Knee Pain The patient reports persistent right knee pain following a twisting injury. An X-ray is recommended to rule out any metastasis from prostate cancer. 3. Back Pain The patient reports increasing back pain, which may be inadequately managed with the current oxycodone regimen. The plan is to maintain the current dosage of oxycodone 10 mg twice daily while awaiting further guidance from the oncologist. During the visit, we discussed the patient's ongoing management of prostate cancer and associated symptoms, including increased urinary frequency and back pain. We agreed to maintain the current oxycodone dosage while awaiting further input from the oncologist regarding pain management. Additionally, we discussed the need for an X-ray of the right knee to rule out metastasis. Orders: Orders XR knee RT 4V Today M25.561 - Pain in right knee Medications: Refilled oxycodone Partial Fill upon patient request. 10 mg PO BID PRN 60 tabs 0RF pain Patient Instructions: - Continue taking oxycodone 10 mg twice daily as prescribed. - Await communication from the oncologist regarding any changes to pain m anagement. - Schedule an X-ray for the right knee to rule out metastasis.
--- OUTSIDE RECORDS SUMMARY | 2025-05-13 12:00 | XMS_ITS | Encounter Summary ---
Author Organization [facility] Address [address] [facility] [address] [place] [address] Phone Care Team Providers Care Medical Insurance Claims Processor Name Role Phone Markell Birmingham MD Primary Care Provider +1- [phone] Encounter Details Date Type Department Care Team (Late st Contact Info) Description 10/15/2024 Procedure Pass OR Admitting Dept - Virtual Department [address] [place] [address] Social History Tobacco Use Types Packs/Day Years [...] on filedocumented in this encounter Care Teams Medical Insurance Claims Processor Relationship Specialty Start Date End Date Markell Birmingham MD [address] [place] [address] PCP - General Internal Medicine 06/24/24 documented as of this encounter Additional Source Comments The information contained in this document represents components of the legal health record. It is not the complete legal health record.[facility]
--- OUTSIDE RECORDS SUMMARY | 2025-05-13 12:00 | XMS_ITS | Clinical Summary ---
Author Organization [facility] Address [address] [facility] [address] [place] [address] Phone Care Team Providers Care Private Branch Exchange Service Adviser Name Role Phone Markell Birmingham MD Primary Care Provider +1- [phone] Allergies Active Allergy Reactions Criticality Noted Date [...] 3:00 PM EDT Telemedicine - audio only [facility] Rad Onc [address] [place] [address] Patrick Serrato MD Malignant neoplasm of prostate [...] this topic Medical Devices Implanted Type Area Event Management Consultant Device Identifier Shelf Expiration Date Model / Serial / Lot Marker Fiducial Preloaded Visicoil Mr - [id number] Implanted:Qty: 1 on 10/15/2024 by Patrick Serrato MD at [facility] N/A: Prostate RADIOMED [employer] [id number] 06/07/2028 [id number] / / [id number] Marker Fiducial Preloaded Visicoil Mr - [id number] Implanted:Qty: 1 on 10/15/2024 by Patrick Serrato MD at [facility] N/A: Prostate [employer] [id number] 06/07/2028 [id number] -PL / / [id number] Insurance PRISCILLA PHILLIPS, JAYA [id number] [facility] FEDERAL MEDICARE PART A & B [facility] MEDICARE [facility] A & B [facility] MEDICARE PART A & B [facility] MEDICARE PART A & B [facility] MEDICARE PART A & B [facility] MEDICARE PART A & B Member Subscriber Plan / Payer (Ef fective 2024-) Name:Fortino Salinas Member ID:[id number] Relation to Subscriber:Self Name:Fortino Salinas Subscriber ID:[id number] Payer ID:[id number] Group ID:Not on file Type:Medicare Address: [facility] [employer] [facility]. [address] [place] [address] Advance Directives For more information, please contact: [phone] (9AM - 5PM [facility], Saturday-Saturday) * Full Code (Latest Code Status on File) Date Activated Date Inactivated Comments 10/15/2024 9:03 AM Question Answer Comments Code Status Confirmed With: Patient Care Teams Private Branch Exchange Service Adviser Relationship Specialty Start Date End Date Markell Birmingham MD [address] [place] [address] PCP - General Internal Medicine 06/24/24 Additional Source Comments The information contained in this document represents components of the legal health record. It is not the complete legal health record.[facility]
== END 2025-05-13 10:57 | disposition home or self-care (01) ==
LOC: HO.HMCSH 10:10
PROVIDERS: PCP Physician Assistant Medical; Visit Provider Physician Assistant Medical
DX: G89.4 Chronic pain syndrome (principal); C61 Malignant neoplasm of prostate; M25.561 Pain in right knee; M51.369 Other intervertebral disc degeneration, lumbar region without mention of lumbar back pain or lower extremity pain

== ENCOUNTER 2025-05-21 09:43 | Outpatient (AMB) | payer MEDICARE, BC, SELFPAY ==
--- NOTE | 2025-05-21 09:45 | A.OFFVIS_ITS ---
Vital Signs 05/21/25 09:47 Height 5 ft 7.24 in Weight 148 lb BMI 23.0 BP 133/74 Blood Pressure Location Lt brachial Position Sitting Respiration 16 Pulse 94 Pulse Source Pulse Oximeter Pulse Oximetry (%) 98 Oxygen Delivery Method Room Air Intake Visit Reasons: Back Pain Quality Control Assistant Required: No Accompanied by: Self / Same As Patient Allergies Penicillins (PENICILLINS) Allergy (Severe, Verified 05/21/25 09:53) RASH penicillin V Allergy (Unknown, Verified 05/21/25 09:53) Unknown Sulfa (Sulfonamide Antibiotics) Allergy (Unknown, Verified 05/21/25 09:53) Unknown HPI Comments Details: The patient is a 65-year-old male presenting with chronic back pain. The chronic back pain began after a fall from a vehicle at work around 1999 or 2000. The pain has progressively worsened over the years and is primarily located on the lower back. The patient reports that the pain does not radiate down the legs and is not tender to touch but worsens with movement and certain positions. The patient has a history of osteoarthritis, which has been identified as a contributing factor to the back pain. Previous interventions included a steroid injection in the spine over 25 years ago, which was ineffective. Physical therapy was attempted but did not provide significant relief. The patient also has a history of prostate cancer, which is currently in remission. The patient underwent radiation therapy, which successfully reduced PSA levels from over 4 to 1.95. - Onset: Began after a fall from a vehicle at work around 1999 or 2000 - Quality: Aching pain, worsens with movement and certain positions - Location: Primarily on the sides of the back - Radiation: Does not radiate down the legs - Exacerbating factors: Movement, certain positions - Affect: Pain impacts daily activities and mood, causing frustration - Analgesia: Current pain level averages 7 out of 10; goal is to reduce to 4 - Adverse Effects: Concerns about high ibuprofen use affecting kidneys - Activities of Daily Living: Pain interferes with daily activities, including work and household tasks - Aberrant Drug Related Behaviors: No aberrant behaviors reported [facility] Medical History Right knee pain History of prostate cancer Chronic pain syndrome Heart murmur Muscle spasm Anxiety and depression Bulging lumbar disc Elevated PSA Lumbar disc disease DJD (degenerative joint disease) HTN (hypertension) Surgical History No pertinent past surgical history Family History Father Heart problem Mother Cerebral hemorrhage Social History Housing: House Alcohol intake: current Alcohol intake frequency: holidays/special occasions only Alcohol type: beer Patient Tobacco Use Status: Never used Tobacco service: Yes Current occupational status: retired Cognitive needs: No Hearing needs: No Vision needs: Yes (rx glasses) Review of Systems Const Details: - Musculoskeletal: Reports chronic back pain, worsens with movement - Neurological: Denies radiation of pain down the legs - Genitourinary: Reports history of prostate cancer, currently in remission Physical Exam Exam Exam: General: awake, alert, oriented. Answers questions appropriately. Fully engaged in examination. Skin: warm, dry, intact HEENT: Normocephalic. Hearing intact. Cardiac: External chest normal in appearance. Respiratory: No cough, audible wheezing or stridor. Abdomen: without gross distension. MS: No obvious swelling or deformities. Able to stand on bilateral tiptoes and bilateral heels.? Able to transition from sit to stand unassisted. Ambulates with bilaterally normal heel strike and toe off Nontender over midline lumbar vertebrae and lumbar paraspinal muscles SLR neg bilaterally neg foot drop, neg clonus decreased lumbar ROM facet loading positive Neurological: Oriented to person, place, time and situation. Thought process intact. No gait abnormalities appreciated. Psychiatric: Appropriate mood and affect. Good judgment and insight. Vital Signs: Last Vital Signs Pulse 94 05/21/25 09:47 Resp 16 05/21/25 09:47 BP 133/74 05/21/25 09:47 Pulse Ox 98 05/21/25 09:47 Oxygen Delivery Method Room Air 05/21/25 09:47 BMI result Body Mass Index 23.0 Results Reviewed Results Reviewed: 11/2020 MR LUMBAR SPINE WITHOUT CONTRAST CLINICAL INFORMATION: Lower back pain. Left leg pain. FINDINGS: VERTEBRAL BODIES AND PARASPINAL STRUCTURES: Straightening of the normal lumbar lordosis, which may be positional or related to muscular spasm. No acute fracture or subluxation. No loss of vertebral body height. Diffuse loss of intervertebral disc height with disc desiccation throughout the lumbar spine with sparing of L5-S1. Prominent Modic type I degenerative endplate changes at L2-L3. Overall, degenerative disc disease appears to have slightly progressed when compared to the prior radiographs. Probable vertebral body hemangioma within the posterior aspect of L1. Partially visualized simple left renal cyst. No recommended followup imaging. Otherwise, the visualized paraspinal soft tissues are unremarkable. CONUS MEDULLARIS AND CAUDA EQUINA: Normal, terminating at the level of L1. SPINAL LEVELS: T12-L1: Broad-based disc bulge with mild bilateral facet arthropathy. No significant central canal or neural foraminal stenosis. L1-L2: Broad-based disc bulge with bilateral facet arthropathy and thickening of the ligamentum flavum causing mild bilateral neural foraminal stenosis. L2-L3: Diffuse broad-based disc bulge with bilateral facet arthropathy and thickening of the ligamentum flavum causing mild central canal stenosis which encroaches upon the traversing left L3 nerve root within the lateral recess. Moderate left and mild right neural foraminal stenosis. L3-L4: Broad-based disc bulge with bilateral facet arthropathy and thickening of the ligamentum flavum causing mild central canal stenosis as well as mild bilateral neural foraminal stenosis. L4-L5: Broad-based disc bulge with a tiny posterior annular fissure. Bilateral facet arthropathy with thickening of the ligamentum flavum causing mild bilateral neural foraminal stenosis, right greater than left. L5-S1: Mild broad-based disc bulge with bilateral facet arthropathy causing mild bilateral neural foraminal stenosis. MR/MR lumbar spine wo con IMPRESSION: 1. Severe degenerative disc disease at L2-L3 with a broad-based disc bulge and bilateral facet arthropathy as well as thickening of the ligamentum flavum which causes mild central canal stenosis which encroaches upon the traversing left L3 nerve root. Moderate left and mild right neural foraminal stenosis. 2. Broad-based disc bulge at L3-L4 with bilateral facet arthropathy and thickening of the ligamentum flavum causing mild central canal as well as mild bilateral neural foraminal stenosis. 3. Broad-based disc bulge at L4-L5 with a tiny posterior annular fissure as well as bilateral facet arthropathy and thickening of the ligamentum flavum causing mild bilateral neural foraminal stenosis, right greater than left. 4. Broad-based disc bulge at L1-L2 with bilateral facet arthropathy and thickening of the ligamentum flavum causing mild bilateral neural foraminal stenosis. 5. Mild broad-based disc bulge at L5-S1 with bilateral facet arthropathy causing mild bilateral neural foraminal stenosis. Assessment & Plan Assessment & Plan (1) Lumbar spondylosis: Code(s): M47.816 - Spondylosis without myelopathy or radiculopathy, lumbar region Category: Medical (2) Degenerative disc disease, lumbar: Code(s): M51.369 - Other intervertebral disc degeneration, lumbar region without mention of lumbar back pain or lower extremity pain Category: Medical Plan The management plan for the patient's chronic back pain involves obtaining an x- ray to evaluate the spine's condition. Physical therapy will be resumed to potentially alleviate pain and strengthen the back. If there is no significant improvement, diagnostic injections will be considered to identify the pain source. If arthritis is confirmed as the primary cause, radiofrequency ablation may be an option. The patient should monitor ibuprofen use due to potential kidney effects and consult with their primary care provider if needed. A follow-up appointment will be scheduled after several weeks of physical therapy to assess progress and modify the treatment plan accordingly. Patient was informed and verbally consented to the use of an ambient scribe for clinic note documentation during this visit. Orders: Orders XR lumbar spine 6V w bending 05/21/25 M47.816 - Spondylosis without myelopathy or radiculopathy, lumbar region, M51.369 - Other intervertebral disc degeneration, lumbar region without mention of lumbar back pain or lower extremity pain PT Evaluation and Treatment 05/21/25 M47.816 - Spondylosis without myelopathy or radiculopathy, lumbar region Patient Instructions: - Schedule and complete an x-ray of your spine. - Begin physical therapy sessions as recommended. - Monitor your ibuprofen use and consult your primary care provider if you have concerns about kidney health. - Return for a follow-up appointment after completing a few weeks of physical therapy. Coding Level of Care Code New Pt Level 4 (91744) Diagnoses Lumbar spondylosis M47.816 Degenerative disc disease, lumbar M51.369
[2025-05-21 09:47] VITALS: BP 133/74; PULSE 94; RESP 16; O2SAT 98; BMI 23.0
--- OUTSIDE RECORDS SUMMARY | 2025-05-21 10:45 | XMS_ITS | Clinical Summary ---
Author Organization [facility] Address [address] [place] [id number] Phone Care Team Providers Care Leather Crafter Name Role Phone Markell Birmingham MD Primary Care Provider [phone]- [phone] Allergies Active Allergy Reactions Criticality Noted Date [...] 3:00 PM EDT Telemedicine - audio only [facility] Rad Onc [address] [place] [address] Patrick Serrato MD Malignant neoplasm of prostate [...] this topic Medical Devices Implanted Type Area Relationship Banker Device Identifier Shelf Expiration Date Model / Serial / Lot Marker Fiducial Preloaded Visicoil Mr - [id number] Implanted:Qty: 1 on 10/15/2024 by Patrick Serrato MD at [facility] N/A: Prostate RADIOMED ActX [id number] 06/07/2028 [id number] -[id number] / / [id number] Marker Fiducial Preloaded Visicoil Mr - [id number] Implanted:Qty: 1 on 10/15/2024 by Patrick Serrato MD at [facility] N/A: Prostate [employer] [id number] 06/07/2028 [id number] -PL / / [id number] Insurance PRISCILLA PHILLIPS, JAYA [id number] [facility] FEDERAL MEDICARE PART A & B [facility] MEDICARE PART A & B [facility] MEDICARE PART A & B [facility] MEDICARE PART A & B [facility] MEDICARE PART A & B [facility] MEDICARE PART A & B Advance Directives For more information, please contact: [phone] (9AM - 5PM [facility], Saturday-Saturday) * Full Code (Latest Code Status on File) Date Activated Date Inactivated Comments 10/15/2024 9:03 AM Question Answer Comments Code Status Confirmed With: Patient Care Teams Leather Crafter Relationship Specialty Start Date End Date Markell Birmingham MD [address] [place] [address] PCP - General Internal Medicine 06/24/24 Additional Source Comments The information contained in this document represents components of the legal health record. It is not the complete legal health record.[facility]
--- OUTSIDE RECORDS SUMMARY | 2025-05-21 10:45 | XMS_ITS | Encounter Summary ---
Author Organization [facility] Address [address] [facility] [address] [place] [id number] Phone Care Team Providers Care Design Inserter Name Role Phone Markell Birmingham MD Primary Care Provider [phone]- [phone] Encounter Details Date Type Department Care Team (Late st Contact Info) Description 10/15/2024 Procedure Pass OR Admitting Dept - Virtual Department [address] [place] [id number] Social History Tobacco Use Types Packs/Day Years [...] on filedocumented in this encounter Care Teams Design Inserter Relationship Specialty Start Date End Date Markell Birmingham MD [address] [place] [id number] PCP - General Internal Medicine 06/24/24 documented as of this encounter Additional Source Comments The information contained in this document represents components of the legal health record. It is not the complete legal health record.[facility]
== END 2025-05-21 10:27 | disposition home or self-care (01) ==
LOC: HO.PMC 09:43
PROVIDERS: PCP Internal Medicine; Visit Provider Registered Nurse Emergency
DX: M47.816 Spondylosis without myelopathy or radiculopathy, lumbar region (principal); M51.369 Other intervertebral disc degeneration, lumbar region without mention of lumbar back pain or lower extremity pain
CPT/HCPCS: 99204

== ENCOUNTER → 2025-05-21 09:43 | Outpatient (BNVA) | payer MEDICARE, BC, SELFPAY | PROVIDERS: PCP Internal Medicine; Visit Provider Registered Nurse Emergency | DX: M47.816 Spondylosis without myelopathy or radiculopathy, lumbar region (principal); M51.369 Other intervertebral disc degeneration, lumbar region without mention of lumbar back pain or lower extremity pain | CPT/HCPCS: 99202 ==

== ENCOUNTER 2025-06-11 09:55 | Outpatient (AMB) | payer MEDICARE, BC, SELFPAY ==
[2025-06-11 10:08] VITALS: BP 143/63; PULSE 85; TEMP 36.1; O2SAT 100; BMI 24.3
--- NOTE | 2025-06-11 10:08 | A.OFFPC_ITS ---
Vital Signs 06/11/25 10:08 06/11/25 11:06 Height 5 ft 7.24 in Weight 156 lb 2 oz BMI 24.3 BP 143/63 H 139/75 Blood Pressure Location Lt brachial Rt brachial Position Sitting Sitting Pulse 85 89 Pulse Source Pulse Oximeter Monitor Temp 97.0 F Temp Source Oral Pulse Oximetry (%) 100 Oxygen Delivery Method Room Air Intake Visit Reasons: 1 month f/u pain meds/contract Accompanied by: Self / Same As Patient Allergies Penicillins (PENICILLINS) Allergy (Severe, Verified 06/11/25 11:07) RASH Sulfa (Sulfonamide Antibiotics) Allergy (Unknown, Verified 06/11/25 11:07) Unknown Medication List - Last Reconciled 06/11/25 by Leidy Landin PA-C cyclobenzaprine 10 mg PO TID 90 days escitalopram oxalate 20 mg PO DAILY ibuprofen 800 mg PO TID 90 days lisinopril 20 mg PO DAILY nifedipine ER 30 mg PO DAILY oxycodone 10 mg PO BID PRN tamsulosin (Flomax) 0.4 mg PO DAILY Tobacco use date assessed: 06/11/25 Fall risk assessment: No Falls in past year Last assessed Fall Risk: 06/11/25 Dental Screening Dental Screen Date: 06/11/25 HPI 1 month f/u pain meds/contract HPI Details The patient is a 65-year-old male presenting with chronic pain management concerns. He has a history of prostate cancer, but the oncologist has indicated that the current pain is not related to this condition. The patient reports chronic pain in the lumbar spine, attributed to an injury sustained several years ago. The pain management plan has included oxycodone, initially prescribed at 10 mg three times a day, now reduced to twice a day. I discussed this with Dr. Lagunas he reported that we should decrease him from 10 mg b.i.d. to 5 mg b.i.d.. He has been advised to undergo an x-ray to evaluate the lumbar spine, though he is skeptical about its utility. Pain management services have suggested injections pending further imaging results. Social History - The patient has insurance and is considering [facility]. - The patient expresses difficulty with frequent travel for appointments due to stress from driving. [facility] Medical History Right knee pain History of prostate cancer Chronic pain syndrome Heart murmur Muscle spasm Anxiety and depression Bulging lumbar disc Elevated PSA Lumbar disc disease DJD (degenerative joint disease) HTN (hypertension) Surgical History No pertinent past surgical history Family History Father Heart problem Mother Cerebral hemorrhage Social History Housing: House Alcohol intake: current Alcohol intake frequency: holidays/special occasions only Alcohol type: beer Patient Tobacco Use Status: Never used Tobacco service: Yes Current occupational status: retired Cognitive needs: No Hearing needs: Yes (OTC hearing aids) Vision needs: Yes (rx glasses) Questionnaire PHQ-9 Over the last 2 weeks, how often have you been bothered by any of the following problems? 1. Little interest or pleasure in doing things: not at all 2. Feeling down, depressed, or hopeless: not at all 3. Trouble falling or staying asleep, or sleeping too much: not at all 4. Feeling tired or having little energy: not at all 5. Poor appetite or overeating: not at all 6. Feeling bad about yourself - or that you are a failure or have let yourself or your family down: not at all 7. Trouble concentrating on things, such as reading the newspaper or watching television: not at all 8. Moving or speaking so slowly that other people could have noticed. Or the opposite - being so fidgety or restless that you have been moving around a lot more than usual: not at all 9. Thoughts that you would be better off or of hurting yourself in some way: not at all Total score: 0 Depression Screening Interpretation: Negative Depression Screening Done: Yes 09675 - PHQ-9 Billing: Yes Source: Developed by Drs. Brent Seth, Feli Tierney, Deon Lee and colleagues, with an educational diann from [employer]. Thrive Questionnaire Date Thrive assessed: 06/11/25 I am a: Patient What is your living situation today?: I have a steady place to live Within the past 12 months, did the food you bought not last and you didn't have the money to get more?: Never true Within the past 12 months, did you worry whether your food would run out before you got money to buy more?: Never true Do you have trouble paying for medicines?: No Do you have trouble getting transportation to medical appointments?: No Do you have trouble paying your heating and electricity bill?: No Do you have trouble taking care of your child, family member or friend?: No Do you have trouble with day-to-day activities such as bathing, preparing meals, shopping, managing finances, etc.?: No Are you currently unemployed and looking for a job?: No Are you interested in more education?: No THRIVE Score: 0 AUDIT C Alcohol Use Questionnaire (AUDIT-C) 1. How often do you have a drink containing alcohol?: Monthly or less 2. How many drinks containing alcohol do you have on a typical day when you are drinking?: 1 or 2 3. How often do you have six or more drinks on one occasion?: Never Total Score: 1 Score Reviewed/Action Taken: No SOTO-7 AMB Questionnaire SOTO-7 Date SOTO - 7 assessed: 03/18/25 Feeling nervous, anxious, or on edge: 0 = Not at all Not being able to stop or control worryin = Not at all Worrying too much about different things: 0 = Not at all Trouble relaxin = Not at all Being so restless that it is hard to sit still: 0 = Not at all Becoming easily annoyed or irritable: 0 = Not at all Feeling afraid as if something awful might happen: 0 = Not at all Total SOTO-7 score (0-4 normal; 5-9 mild; 10-14 moderate; 15-21 severe): 0 Source: Developed by Drs. Brent Seth, Feli Tierney, Deon Lee and colleagues, with an educational diann from [employer]. SOTO-7 Assessment Billing SOTO-7 Assessment Tool: SOTO-7 Assessment 52985 Review of Systems Const Details: - Musculoskeletal: Reports chronic pain in the lumbar spine. - Cardiovascular: Denies chest pain, reports elevated blood pressure possibly due to stress from driving. All systems reviewed & are unremarkable except as noted in HPI and below Physical exam (Primary Care) Vital Signs: Last Vital Signs Temp 97.0 F 06/11/25 10:08 Pulse 85 06/11/25 10:08 BP 143/63 H 06/11/25 10:08 Pulse Ox 100 06/11/25 10:08 Oxygen Delivery Method Room Air 06/11/25 10:08 Care Plan Goal for BP management: <140/90 at Goal BMI result Body Mass Index 24.3 Normal BMI Tobacco/Smoking Status: Tobacco use Status Tobacco use date assessed 06/11/25 06/11/25 10:17 Patient Tobacco Use Status Never used Tobacco 06/11/25 10:17 PHQ-9: PHQ-9 Score PHQ-9: Total score 0 06/11/25 10:28 Depression Screening Interpretation: Negative Thrive Assessment: Date of Thrive Assessment Date Thrive assessed 06/11/25 06/11/25 10:17 Const Other: Appearance: Alert. Oriented X3. No acute distress. Head: Normal external exam. Normocephalic. Atraumatic. Eyes: Pupils are equal, round, and reactive to light. Extraocular movements intact. Conjunctiva and sclera normal. Eyelids normal. Throat: Pharynx normal. Uvula midline. Moist mucous membranes. Neck: Normal inspection. Neck supple. Full range of motion. Cardiovascular: Regular rate and rhythm. Respiratory: No respiratory distress. Painless inspiration. Back: Full range of motion noted. Patient reports chronic pain to lumbar spine. Skin: Skin warm and dry. Normal skin color. Extremities: Extremities exhibit normal range of motion. Office Procedures Flu Questionnaire Does the patient have a severe egg allergy?: No Does the patient have severe life threatening allergies?: No Does the patient have a fever or illness today?: No Has the patient ever had Guillain-[place] Syndrome?: No Has the patient ever had any past reaction to a flu shot?: No Office Meds naloxone 4 mg/actuation nasal spray Performing Provider: Leidy Landin PA-C [facility] Administered by: Leidy Landin PA-C on 06/11/25 10:43 Dose Route Admin Location Dispensed Lot Number Expiration Date ND Director Biostatistics 4 mg intranasal 1 ea Total Dispensed Waste 1 ea 0 % Comments: to take home due to chronic pain meds Immunizations Fluarix [id number] (PF) 45 mcg (15 mcg x 3)/0.5 mL IM syringe Performing Provider: Leidy Landin PA-C Performing Location: [facility] Documented (not given) by: Cristin Bella CMA on 06/11/25 10:17 Reason Not Given: Patient Refused Results Reviewed Results Reviewed: - Imaging: X-ray of lumbar spine ordered, pending completion. Coding Level of Care Code Est Pt Level 4 (37885) Complex EM visit Add On G2211 Diagnoses Chronic pain syndrome G89.4 Degenerative disc disease, lumbar M51.369 Lumbar spondylosis M47.816 Bulging lumbar disc M51.369 Additional Codes PHQ-9 - 80743 - PHQ-9 Billing: Yes ([id number]) SOTO-7 Assessment Billing - SOTO-7 Assessment Tool: SOTO-7 Assessment 07149 ([id number]) Assessment & Plan Assessment & Plan (1) Chronic pain syndrome: Code(s): G89.4 - Chronic pain syndrome Category: Medical Plan: The patient is on oxycodone 10 mg twice daily for chronic lumbar spine pain, with a adjustment to 5 mg twice daily after consultation with Dr. Wong today. An x-ray has been ordered to assess the lumbar spine, though the patient is skeptical about its utility. Pain management services have suggested injections, contingent upon further imaging results. (2) Degenerative disc disease, lumbar: Code(s): M51.369 - Other intervertebral disc degeneration, lumbar region without mention of lumbar back pain or lower extremity pain Category: Medical (3) Lumbar spondylosis: Code(s): M47.816 - Spondylosis without myelopathy or radiculopathy, lumbar region Category: Medical (4) Bulging lumbar disc: Code(s): M51.369 - Other intervertebral disc degeneration, lumbar region without mention of lumbar back pain or lower extremity pain Category: Medical Plan Plan Patient was informed and verbally consented to the use of an ambient scribe for clinic note documentation during this visit. 1. Chronic Pain In Lumbar Spine The patient is on oxycodone 10 mg twice daily for chronic lumbar spine pain, with a adjustment to 5 mg twice daily after consultation with Dr. Wong today. An x-ray has been ordered to assess the lumbar spine, though the patient is skeptical about its utility. Pain management services have suggested injections, contingent upon further imaging results. I discussed with the patient the current pain management strategy, including the use of oxycodone and the dosage adjustment to 5 mg b.i.d. after further consultation with Dr. Wong. We also reviewed the necessity of an x-ray for the lumbar spine, despite the patient's skepticism, as a prerequisite for further imaging and potential interventions. The patient was informed about the possibility of injections as part of the pain management plan, contingent on imaging results. Orders: Orders AMB Naloxone Hydrochloride Administration Today G89.4 - Chronic pain syndrome Influenza [id number] Immunization Today Z23 - Encounter for immunization Medications: Changed From oxycodone Partial Fill upon patient request. 10 mg (2 x 5 mg) PO BID PRN 60 tabs 0RF pain To oxycodone Partial Fill upon patient request. 5 mg PO BID PRN 60 tabs 0RF pain From oxycodone Partial Fill upon patient request. 10 mg PO BID PRN 60 tabs 0RF pain To oxycodone Partial Fill upon patient request. 10 mg (2 x 5 mg) PO BID PRN 60 tabs 0RF pain Patient Instructions: - Continue current medication regimen until further notice from Dr. Wong. - Schedule and complete the x-ray for the lumbar spine as soon as possible. - Follow up with pain management services regarding potential injections. - Plan for the next appointment in three months.
[2025-06-11 11:06] VITALS: BP 139/75; PULSE 89
--- OUTSIDE RECORDS SUMMARY | 2025-06-11 11:33 | XMS_ITS | Encounter Summary ---
Author Organization [facility] Address [address] [place] [address] Phone Care Team Providers Care [employer] We[employer] Sergeant Name Role Phone Markell Birmingham MD Primary Care Provider [phone]- [phone] Encounter Details Date Type Department Care Team (Late st Contact Info) Description 10/15/2024 Procedure Pass OR Admitting Dept - Virtual Department [address] [place] [id number] Social History Tobacco Use Types Packs/Day Years [...] on filedocumented in this encounter Care Teams [employer] Weapons Sergeant Relationship Specialty Start Date End Date Markell Birmingham MD [address] [place] [id number] PCP - General Internal Medicine 06/24/24 documented as of this encounter Additional Source Comments The information contained in this document represents components of the legal health record. It is not the complete legal health record.[facility]
--- OUTSIDE RECORDS SUMMARY | 2025-06-11 11:33 | XMS_ITS | Clinical Summary ---
Author Organization [facility] Address [address] [place] [address] Phone Care Team Providers Care Continuous Improvement Black Belt Name Role Phone Markell Birmingham MD Primary Care Provider [phone]- [phone] Allergies Active Allergy Reactions Criticality Noted Date [...] 3:00 PM EDT Telemedicine - audio only [facility] Rad Onc [address] [place] [address] Patrick Serrato MD Malignant neoplasm of prostate [...] VACCINE (#1) 2025 COVID-19 VACCINE ( - 2024-2 6 season) 2025 RSV VACCINE (1 - 1-dose [...] this topic Medical Devices Implanted Type Area Theatrical Performer Device Identifier Shelf Expiration Date Model / Serial / Lot Marker Fiducial Preloaded Visicoil Mr - [id number] Implanted:Qty: 1 on 10/15/2024 by Patrick Serrato MD at [facility] N/A: Prostate RADIOMED 3dim [id number] 06/07/2028 [id number] -[id number] / / [id number] Marker Fiducial Preloaded Visicoil Mr - [id number] Implanted:Qty: 1 on 10/15/2024 by Patrick Serrato MD at [facility] N/A: Prostate [employer] [id number] 06/07/2028 [id number] -PL / / [id number] Insurance PRISCILLA PHILLIPS, JAYA [id number] [facility] FEDERAL MEDICARE PART A & B [facility] MEDICARE PART A & B [facility] MEDICARE PART A & B [facility] MEDICARE PART A & B [facility] MEDICARE PART A & B [facility] MEDICARE PART A & B Advance Directives For more information, please contact: [phone] (9AM - 5PM [facility], Saturday-Saturday) * Full Code (Latest Code Status on File) Date Activated Date Inactivated Comments 10/15/2024 9:03 AM Question Answer Comments Code Status Confirmed With: Patient Care Teams Continuous Improvement Black Belt Relationship Specialty Start Date End Date Markell Birmingham MD [address] [place] [address] PCP - General Internal Medicine 06/24/24 Additional Source Comments The information contained in this document represents components of the legal health record. It is not the complete legal health record.[facility]
== END 2025-06-11 10:44 | disposition home or self-care (01) ==
LOC: HO.HMCSH 09:55
PROVIDERS: PCP Internal Medicine; Visit Provider Physician Assistant Medical
DX: G89.4 Chronic pain syndrome (principal); M51.369 Other intervertebral disc degeneration, lumbar region without mention of lumbar back pain or lower extremity pain; M47.816 Spondylosis without myelopathy or radiculopathy, lumbar region; Z23 Encounter for immunization

== ENCOUNTER → 2025-06-11 09:55 | Outpatient (BNVA) | payer MEDICARE, BC, SELFPAY | PROVIDERS: PCP Internal Medicine; Visit Provider Physician Assistant Medical | DX: G89.4 Chronic pain syndrome (principal); M51.369 Other intervertebral disc degeneration, lumbar region without mention of lumbar back pain or lower extremity pain; M47.816 Spondylosis without myelopathy or radiculopathy, lumbar region; Z85.46 Personal history of malignant neoplasm of prostate; Z79.891 Long term (current) use of opiate analgesic; Z28.21 Immunization not carried out because of patient refusal | CPT/HCPCS: 90471; 96127; 99212 ==